=== PATIENT | female | born 1945 | race Caucasian/White ===

== ENCOUNTER 2017-11-30 22:04 | Inpatient (IN) | payer MEDICARE, BC ==
[~2017-11-30] VITALS: Ht 165.1 cm; Wt 75.2 kg
--- NOTE | ~2017-11-30 | PN ---
PATIENT:LIBERTY LIND MEDICAL RECORD: [id number] LOCATION:[facility] RamirezDiana ADMISSION DATE: 11/30/17 PROGRESS NOTE DATE OF SERVICE: 12/08/2017 SUBJECTIVE: The patient's case was discussed with staff. She has no new complaint. OBJECTIVE: The patient is in good behavioral control with limited insight about her condition. She does tolerate her medicines well. She is significantly calmer today, but is still not sleeping adequately. Her medicines have been reviewed and will be maintained. She did not have any hallucinations yesterday. TRANSINT: Voice Confirmation ID: [id number] DOCUMENT ID: [id number] JAYNE BECKFORD MD at 1407 CC: [id number] DICTATION DATE: 12/08/17 151 PLUMBER MAINTENANCE: 12/08/17 1518 ADM IN [facility] [address] [place] [address]
--- NOTE | ~2017-11-30 | PN ---
PATIENT:LIBERTY LIND MEDICAL RECORD: [id number] LOCATION:MAR[facility] GUADALUPE Ramirez112 ADMISSION DATE: 11/30/17 PROGRESS NOTE DATE OF SERVICE: 12/04/2017 SUBJECTIVE: The patient's case was discussed with staff. She has no new complaint. OBJECTIVE: The patient is in good behavioral control with limited insight about her condition. She is oriented only to person. ASSESSMENT: No change in diagnoses. PLAN: Current medicines and therapies have been reviewed. Her long-term prognosis is guarded. TRANSINT:[id number] Voice Confirmation ID: [id number] DOCUMENT ID: [id number] JAYNE BECKFORD MD at 1002 CC: [id number] DICTATION DATE: 12/04/17 1116 WELL LOGGING CAPTAIN: 12/04/17 1212 ADM IN [place] [id number] [place] [address]
--- NOTE | ~2017-11-30 | PN ---
PATIENT:LIBERTY LIND MEDICAL RECORD: [id number] LOCATION:[facility] GUADALU[facility] Ramirez112 ADMISSION DATE: 11/30/17 PROGRESS NOTE DATE OF SERVICE: 12/05/2017 SUBJECTIVE: The patient's case was discussed with staff. She has no new complaint. OBJECTIVE: The patient denies intent to harm herself or others. She generally tolerates her medicines well. Eye contact is poor. ASSESSMENT: No change in diagnoses. PLAN: The patient will be given Aricept along with the Namenda to slow the decline in her cognitive processes. She has not been aggressive today. TRANSINT:[id number] Voice Confirmation ID: [id number] DOCUMENT ID: [id number] JAYNE BECKFORD MD at 1319 CC: [id number] DICTATION DATE: 12/05/17 1018 ART GLASS SETTER: 12/05/17 1144 ADM IN [facility] [address] [place] [id number]
--- NOTE | ~2017-11-30 | PN ---
PATIENT:LIBERTY LIND MEDICAL RECORD: [id number] LOCATION:MARIA GUADALUPE Mchugh ADMISSION DATE: 11/30/17 PROGRESS NOTE DATE OF SERVICE: 12/10/2017 SUBJECTIVE: The patient's case was discussed with staff. She has no new complaint. OBJECTIVE: The patient denies intent to harm herself or others. She generally tolerates her medicines well. Eye contact is fair. ASSESSMENT: No change in diagnoses. PLAN: Brief supportive and educational interventions were made. The patient has been having active hallucinations today. I did not observe them, but they were reported to me. Apparently, she has been seeing a little boy and the little boy has been threatening to kill her. I did increase her antipsychotic medication yesterday if it is going to help, it has not had an opportunity to do much of anything. TRANSINT:[id number] Voice Confirmation ID: [id number] DOCUMENT ID: [id number] JAYNE BECKFORD MD at 1234 CC: [id number] DICTATION DATE: 12/10/17 1427 SUMMER NANNY: 12/10/17 [address] [facility] [address] [place] [address]
--- NOTE | ~2017-11-30 | HP ---
PATIENT: LIBERTY LIND MEDICAL RECORD: [id number] ACCOUNT: [id number] LOCATION:MARIA GUADALUPE Ramirez1127 : 49 ADMISSION DATE: 11/30/17 PCP: BEBETO CARVALHO MD HISTORY AND PHYSICAL EXAMINATION BONNY Perez (70yo, F) ID# [id number]. Date/Time12/09/2017 11:48GAANA66/25[birth year]1950[facility] ClinicProviderEDANNIE DICKERSON MDInsuranceMed Primary: [place] Insurance # : [id number] PCP : ARMOND CARRANZA Referring Provider Name : ARMOND CARRANZA Employer Name : NONE Med Secondary: [employer] (MEDICARE SUPPLEMENT) Insurance # : [id number] PCP : SUKHWINDER GEIGER Referring Provider Name : TAPAN PETERSON Employer Name : NONE Prescription: CMX - Member is eligible. Chief Complaint Followup: Atherosclerosis of [place] arteries of the extremities PT REQUESTED APPT. RECENTLY FELL TO KNEES, HAD INCREASED LEG AND FOOT SWELLING. SAW DR NIÑO, WHO TOLD HER TO SEE DR DICKERSON. Patient's Care Team Primary Care Provider (): ARMOND CARRANZA: [facility], [address], [place] [address], , Referring Provider (): ARMOND CARRANZA: [facility], [address], [place] [address], , Primary Care Provider (): SUKHWINDER GEIGER[facility], [address] [place] [address], , Referring Provider (): TAPAN PETERSON: [address] [place] [phone], , Referring Provider: HENNA HILL MD: [address] [place] [phone], , Primary Care Provider: SUKHWINDER GEIGER DO: [address], [place] [address], , Patient's Pharmacies [id number] ([place]): [address] [facility] [address], , [id number] ([place]): [address], [facility] [address], , use mail out for Large QTY Vitals BP:128/68 sitting L arm 12/09/2017 11:26 amBP Cuff Size:adult 12/09/2017 11:26 amHR:100,REG 12/09/2017 11:26 amHt:5 ft 12/09/2017 11:23 amWt:180 lbs 12/09/2017 11:26 amNotes:LEFT LEG PAINFUL FROM HIP DOWN, AND SWELLING TO ENTIRE LEG, WITH FOOT VERY PUFFY. 12/09/2017 11:27 amBMI:35.2 12/09/2017 11:26 amAllergies Reviewed Allergies NKDAMedications Reviewed Medications acetaminophen 300 mg-codeine 30 mg sjslwu42/24/16 filledCaremarkammonium lactate 12 % skiyio13/12/18 filledCaremarkamoxicillin 500 mg-potassium clavulanate 125 mg kiravd26/16/18 filledCaremarkanastrozole 1 mg euevps58/04/14 HISTORY AND PHYSICAL [id number] LIBERTY LIND filledCaremarkatorvastatin 10 mg /07/18 filledCaremarkBreeze 2 kit USE TO CHECK BLOOD SUGAR DAILY.05/01/15 filledsurescriptsBreeze 2 Test Strips CHECK BLOOD SUGAR TWICE A DAY10/27/17 filledsurescripts cephALEXin 500 mg jevndpn42/09/17 filledCaremarkclindamycin HCl 150 mg /24/16 filledCaremarkclindamycin HCl 300 mg umydykn84/12/17 filledCaremarkclopidogrel 75 mg tablet TAKE 1 TABLET BY MOUTH DAILY09/23/17 filledCaremarkcodeine 10 mg-guaifenesin 100 mg/5 mL oral /08/18 filledCaremarkcyclobenzaprine 10 mg tablet TAKE 1 TABLET (10 MG) BY MOUTH DAILY AT BEDTIME.11/30/17 filledCaremarkdicloxacillin 500 mg worijfr10/13/14 filledCaremarkfluconazole 200 mg xmeykt19/07/14 filledCaremarkfolic acid 1 mg tablet TAKE 1 TABLET BY MOUTH EVERY DAY09/19/17 filledCaremark FreeStyle Lancets 28 gauge USE DIRECTED TO TEST TWICE DAILY11/03/17 filledsurescriptsgabapentin 300 mg capsule TAKE ONE CAPSULE BY MOUTH 3 TIMES A DAY09/03/16 filledCaremarkglipiZIDE 10 mg hxitvj08/24/18 filledCaremarkglipiZIDE 5 mg tablet TAKE ONE TABLET BY MOUTH IN THE MORNING AND ONE TABLET BY MOUTH AT SNLYNVF90/09/18 filledCaremarkHYDROcodone 10 mg-acetaminophen 325 mg tablet TAKE 1 TABLET BY MOUTH EVERY 4 HOURS NEEDED FOR MODERATE PAIN11/08/17 filledCaremarkHYDROcodone 5 mg-acetaminophen 325 mg tablet TAKE 1 TABLET BY MOUTH EVERY 4 HOURS NEEDED FOR MODERATE PAIN02/04/16 filledCaremarkHYDROcodone 7.5 mg-acetaminophen 325 mg npeeyt26/18/16 filledCaremarkhydroxychloroquine 200 mg tablet TAKE 1 TABLET BY MOUTH TWICE A DAY10/02/17 filledCaremarkindomethacin 25 mg pgghjaw18/24/16 filledCaremarkleflunomide 10 mg tablet TK 1 T PO D011/22/17 filledCaremarklevoFLOXacin 500 mg mvfxcu98/28/15 filledCaremarklisinopril 10 mg tablet TAKE ONE TABLET DAILY BY MOUTH11/08/17 filledCaremarkmeclizine 25 mg /27/18 filledCaremarkmetFORMIN 500 mg /21/18 filledCaremarkmethocarbamol 750 mg mxmmiu52/18/16 filledCaremarkmetHOTREXate sodium 2.5 mg fbbejf75/14/18 filledCaremarkmethylPREDNISolone 4 mg tablets in a dose pack03/02/17 filledCaremarkmetoprolol tartrate 25 mg tablet TAKE 1/2 TABLET BY MOUTH TWICE A DAY10/07/17 filledCaremarkmupirocin 2 % topical dzpoxdmr09/19/15 filledCaremarkMyrbetriq 50 mg tablet,extended sfyfhyq75/06/18 filledCaremarkniacin ER 500 mg tablet,extended release 24 hr TK 1 T PO D010/23/17 filledCaremarknitrofurantoin monohydrate/macrocrystals 100 mg /18/17 filledCaremarknystatin 100,000 unit/gram topical cream09/13/17 filledCaremarknystatin 100,000 unit/mL oral hsrawwdjyd56/07/15 filledCaremarkomega-3 acid ethyl esters 1 gram fbwsgoo34/03/17 filledCaremarkomeprazole 20 mg capsule,delayed uqooxwr48/15/18 filledCaremarkoxybutynin chloride ER 10 mg tablet,extended release 24 hr TAKE 1 TABLET BY MOUTH DAILY04/12/17 filledCaremarkpolymyxin B sulfate 10,000 unit-trimethoprim 1 mg/mL eye drops08/03/17 filledCaremarkpredniSONE 5 mg tablet TAKE ONE TABLET BY MOUTH EVERY DAY10/24/17 filledCaremarkPrempro 0.625 mg-2.5 mg wfcjlo89/14/14 filledCaremarkProAir HFA 90 mcg/actuation aerosol inhaler INHALE 1-2 PUFFS EVERY 4-6 HOURS CRWCJM18/09/18 filledsurescriptspromethazine 25 mg rectal fctfkmranah47/28/15 filledCaremarkpromethazine 6.25 mg-codeine 10 mg/5 mL syrup02/15/17 filledCaremarkSantyl 250 unit/gram topical kkdgwkoj10/05/15 filledCaremarkSF 5000 Plus 1.1 % dental cream10/31/14 filledCaremarktamoxifen 20 mg /21/18 filledCaremarktemazepam 30 mg capsule TK ONE C PO HS09/24/17 filledCaremarktraMADol 50 mg iqjlok02/16/18 filledCaremarktriamcinolone acetonide 0.1 % dental paste01/19/14 filledCaremarkTRUEplus Lancets 30 gauge10/17/14 filledsurescriptsProblems Reviewed Problems HISTORY AND PHYSICAL [id number] LIBERTY LIND Intraductal carcinoma in situ of breast Atherosclerosis of [place] arteries of the extremities, Bilateral Intermittent claudication due to atherosclerosis of [place] artery of limb Limb pain at rest due to atherosclerosis of [place] artery Intermittent claudication Osteoarthritis of hip Osteoarthritis of knee Pain of left hip joint - Onset: 09/01/2017 Pain in left knee Pain of right shoulder joint Family History Reviewed Family History Non-contributory.Social History Reviewed Social History Cardiology and General Smoking Status: Never smoker Diabetes: N Alcohol intake: None Occupation: unemployed Marital status: Is blood transfusion acceptable in an emergency?: Y Surgical History Reviewed Surgical History Vascular Surgery - 05/28/2015 - LLE arteriogram, angioplasty/stenting LCFA Vascular Surgery - 05/03/2015 - RLE arteriogram/intervention Lumpectomy, with needle localization - 06/26/2013 Excision, tumor, soft tissue of foot/toe - 04/01/2011 Art byp femoral-popliteal - 03/13/2008 - LT. 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 HPI Peripheral Vascular Disease Reported by patient. Location: WHOLE LEG HURTS Quality: aching; weakness Severity: interferes with normal activity Duration: started 3weeks ago Onset/Timing: continuous Context: during walking; at rest Alleviating Factors: rest Aggravating Factors: walking Associated Symptoms: skin discoloration; PULSES PRESENT WITH DOPPLER HISTORY AND PHYSICAL [id number] LELO,LIBERTY Coyne Bilateral lower extremity edema ROS Patient reports exercise intolerance but reports no fever, no night sweats, no significant weight gain, and no significant weight loss; claudication lower extremities bilaterally left worse than the right. She reports muscle aches, muscle weakness, arthralgias/joint pain, and back pain but reports no swelling in the extremities. She reports no dry eyes, no irritation, and no vision change. She reports no difficulty hearing and no ear pain. She reports no frequent nosebleeds and no nose/sinus problems. She reports no sore throat, no bleeding gums, no s n oring, no dry mouth, no mouth ulcers, no oral abnormalities, and no teeth problems. She reports no chest pain, no arm pain on exertion, no shortness of breath when walking, no shortness of breath when lying down, no palpitations, and no known heart murmur . She reports no cough, no wheezing, no shortness of breath, and no coughing up blood. She reports no abdominal pain, no vomiting, normal appetite, no diarrhea, not vomiting blood, no nausea, and no constipation. She reports no incontinence, no difficulty u rinating, no hematuria, and no increased frequency. She reports no abnormal mole, no jaundice, and no rashes. She reports no loss of consciousness, no weakness, no numbness, no seizures, no dizziness, and no headaches. She reports no depression, no sleep disturbances, feeling safe in relationship, and no alcohol abuse. She reports no fatigue. She reports no swollen glands and no bruising. She reports no runny nose, no sinus pressure, no itching, no hives, and no frequent sneezing. Additionally reports: claudication lower external disease bilaterally left greater than the right ROS as noted in the HPI Physical Exam Patient is a 70-year-old female. Constitutional: General Appearance healthy-appearing, well developed, and overweight. Level of Distress NAD. Ambulation limited ambulation (RH ARTH.). Ears, Nose, Throat: Ears grossly normal hearing. Nose no external nose lesion. Lips, Teeth, and Gums no mouth or lip ulcers. Oropharynx: moist mucous membranes. Cardiovascular: Apical Impulse not displaced or no thrill. Heart Auscultation normal s1 and s2; no murmurs, rubs, or gallops; and RRR. Arterial Pulses no abdominal aorta bruits, femoral bruits, or popliteal bruits and 2+ bilateral, carotid 2+ bilateral, femoral 2+ bilate ral, popliteal 2+ bilateral, and dorsalis pedis not palpable (Bilaterally). Edema no varicosities and edema (Lower extremities bilaterally). Lungs: Repiratory Effort no dyspnea. Percussion no hyperresonance or dullness or flatness. Auscultation no wheezing , rhonchi, or rales / crackles and breathing sounds normal, good air movement, and CTA except as noted. Abdomen: Bowl Sounds normal. Inspection and Palpation no tenderness, guarding, masses, or rebound tenderness and soft and non-distended. Liver non-tender and no hepatomegaly. Spleen non-tender and no splenomegaly. Hernia none palpable. Musculoskeletal System: Gait And Stance normal gait and stance. Digits and Nails normal nails and no cyanosis. Joints, Bones, and Muscles abnormal strength and normal movement of all extremities. Neurologic: Cranial Nerves grossly intact. Reflexes DTRs 2+ bilaterally throughout. Sensation grossly intact. HISTORY AND PHYSICAL [id number] LIBERTY LIND Lymph Nodes: Lymph Nodes no cervical LAD, supraclavicular LAD, axillary LAD, or inguinal LAD. Eyes: Lids and Conjunctivae no discharge or pallor and non-injected. Pupils PERRLA. Cornea grossly intact. EOM EOMI. Lens clear. Sclera non-icteric. Neck: Neck no masses, enlarged lymph nodes, or carotid bruits and supple and trachea midline. Thyroid no enlargement or nodules and non-tender. Skin: Inspection and Palpation no rash, lesions, ulcers, jaundice, or abnormal nevi. Assessment / Plan Peripheral arterial disease Bilateral lower extremity edema 1. Atherosclerosis of [place] arteries of the extremities I70.203: Unspecified atherosclerosis of [place] arteries of extremities, bilateral legs Discussion Notes Echocardiogram Bilateral venous Doppler Hemogram and CMP NAHOMY DICKERSON MD at 1722 CC: [id number] DICTATION DATE: 12/09/17 1140 SUPERVISOR TRAVEL TRAILER: DM 12/09/17 1429 ADM IN [facility] [address] [place] [address]
--- NOTE | ~2017-11-30 | PN ---
PATIENT:LIBERTY LIND MEDICAL RECORD: [id number] LOCATION:MARIA GUADALUPE Ramirez112 ADMISSION DATE: 11/30/17 PROGRESS NOTE DATE OF SERVICE: 12/03/2017 SUBJECTIVE: The patient's case was discussed with staff. She has no new complaint. OBJECTIVE: The patient is tolerating her medicines well, but she is profoundly confused. ASSESSMENT: No change in diagnoses. PLAN: Brief supportive and educational interventions were made. Long-term prognosis is guarded. TRANSINT:[id number] Voice Confirmation ID: [id number] DOCUMENT ID: [id number] JAYNE BECKFORD MD at 1053 CC: [id number] DICTATION DATE: 12/03/17 1334 IT SYSTEMS ENGINEER: 12/03/17 1343 ADM IN [place] [id number] [place] [address]
--- NOTE | ~2017-11-30 | PN ---
PATIENT:LIBERTY LIND MEDICAL RECORD: [id number] LOCATION:MARIA GUADALUPE Mchugh ADMISSION DATE: 11/30/17 PROGRESS NOTE DATE OF SERVICE: 12/16/2017 SUBJECTIVE: The patient's case was discussed with staff. She has no new complaint. OBJECTIVE: The patient is in good behavioral control, but last night she once again had difficulty. She became acutely psychotic and frightened. She was actively hallucinating and thought that someone was trying to hurt a baby. She has no recollection of this event today, but the documentation on it is significant. ASSESSMENT: No change in diagnoses. PLAN: I am going to try to give the patient a stronger dose of Klonopin at bedtime to assist with these night time issues. Her long-term prognosis is guarded. TRANSINT:[id number] Voice Confirmation ID: [id number] DOCUMENT ID: [id number] JAYNE BECKFORD MD at 1406 CC: [id number] DICTATION DATE: 12/16/17 1450 CUSTOMER SERVICE AND SALES CONSULTANT: 12/16/17 1502 ADM IN [place] [address] [place] [address]
--- NOTE | ~2017-11-30 | PN ---
PATIENT:LIBERTY LIND MEDICAL RECORD: [id number] LOCATION:MARIA GUADALUPE LuongAyan112 ADMISSION DATE: 11/30/17 PROGRESS NOTE DATE OF SERVICE: 12/07/2017 SUBJECTIVE: The patient's case was discussed with staff. She has no new complaint. OBJECTIVE: The patient denies intent to harm herself or others. She generally tolerates her medicines well. ASSESSMENT: No change in diagnoses. PLAN: The patient has been somewhat anxious. I am going to give her a low dose of Klonopin at bedtime to assist with sleep consolidation and I suspect it will, because of its long half life, continue to relieve some of the anxiety that she has throughout the day. She will be monitored for clinical changes associated with its use. TRANSINT:[id number] Voice Confirmation ID: [id number] DOCUMENT ID: [id number] JAYNE BECKFORD MD at 1449 CC: [id number] DICTATION DATE: 12/07/17 1518 MULTIMEDIA EDITOR: 12/07/17 1556 ADM IN [place] [id number] [place] [id number]
--- NOTE | ~2017-11-30 | PN ---
PATIENT:LIBERTY LIND MEDICAL RECORD: [id number] LOCATION:MARIA GUADALUPE Ramirez112 ADMISSION DATE: 11/30/17 PROGRESS NOTE DATE OF SERVICE: 12/13/2017 SUBJECTIVE: The patient's case was discussed with staff. She has no new complaint. OBJECTIVE: The patient is in good behavioral control with limited insight about her condition. She generally tolerates her medicines well. She has not been aggressive today. ASSESSMENT: No change in diagnoses. PLAN: Supportive and educational interventions were made. Long-term prognosis is guarded. TRANSINT:[id number] Voice Confirmation ID: [id number] DOCUMENT ID: [id number] JAYNE BECKFORD MD at 1416 CC: [id number] DICTATION DATE: 12/13/17 1615 FILAMENT MAKER: 12/13/17 1629 ADM IN [place] [id number] [place] [address]
--- NOTE | ~2017-11-30 | PN ---
PATIENT:LIBERTY LIND MEDICAL RECORD: [id number] LOCATION:MARIA GUADALUPE Ramirez112 ADMISSION DATE: 11/30/17 PROGRESS NOTE DATE OF SERVICE: 12/22/2017 SUBJECTIVE: The patient's case was discussed with staff. She has no new complaint. OBJECTIVE: The patient is very much improved with no delusions or psychotic symptoms. She has no thoughts of harming herself or others. She is profoundly confused and I think that trying to care for her at home is probably a larger task than the family realizes, but that is what they want to do. ASSESSMENT: No change in diagnoses. PLAN: The patient will be discharged to home with her family and caregiver. Long-term prognosis is unfortunately not very good. Her disease is progressive and it is already advanced. Followup will be with her primary care physician. TRANSINT:[id number] Voice Confirmation ID: [id number] DOCUMENT ID: [id number] JAYNE BECKFORD MD at 1127 CC: [id number] DICTATION DATE: 12/22/17 1013 CATTLE SORTER: 12/22/17 1107 DIS IN 12/22/17 [facility] [address] [place] [address]
--- NOTE | ~2017-11-30 | PN ---
PATIENT:LIBERTY LIND MEDICAL RECORD: [id number] LOCATION:MARIA GUADALUPE Ramirez112 ADMISSION DATE: 11/30/17 PROGRESS NOTE DATE OF SERVICE: 12/06/2017 SUBJECTIVE: The patient's case was discussed with staff. She has no new complaint. OBJECTIVE: The patient was observed today talking to hallucinations. When asked about it, she has no recollection of it. ASSESSMENT: No change in diagnoses. PLAN: The patient is seriously and significantly impaired cognitively. She has very limited insight about her situation. ASSESSMENT: No change in diagnoses. PLAN: Supportive and educational interventions were made. Long-term prognosis is guarded. TRANSINT:[id number] Voice Confirmation ID: [id number] DOCUMENT ID: [id number] JAYNE BECKFORD MD at 1440 CC: [id number] DICTATION DATE: 12/06/17 1410 TOLL SETTLEMENT CLERK: 12/06/17 1421 ADM IN [place] [address] [place] [address]
--- NOTE | ~2017-11-30 | PSY ---
PATIENT NAME:LIBERTY LIND MEDICAL RECORD: [id number] : 49 LOCATION:AgIMTIAZ Ramirez1127 ADMISSION DATE: 11/30/17 ACCOUNT: [id number] PSYCHIATRIC EVALUATION DATE OF EVALUATION: 12/01/17 PSYCHIATRIC EVALUATION IDENTIFYING DATA: The patient is 72 years old and she is admitted to the hospital on a voluntary basis. CHIEF COMPLAINT: Confusion. HISTORY OF PRESENT ILLNESS: The patient comes to us from the [facility] Emergency Room. She presented there paranoid and delusional. She was afraid of an old man. The man did not have a specific name, but she was seeing him everywhere and was afraid to be alone and afraid he was going to hurt her. She is no longer mentioning the old man or at least does not do so when I interview her, but she clearly is profoundly impaired. She knows her name. She cannot tell me how old she is. She cannot tell me any basic information that would be orienting or about her personally. She is clearly awake, alert, responsive, interactive, and has a euthymic mood, but she cannot answer questions. PAST MEDICAL HISTORY: The past medical history is largely unknown. Apparently, there is a pharmacy that the patient uses and we have been able to obtain a list of medications. The medications she is on would indicate that she has a history of hypertension and a long established diagnosis of dementia based on the fact that she was taking Exelon and Namenda. She also must have some history of mood or behavior disturbances since she is also prescribed Zoloft and Seroquel. She is also on a strange combination of herbal medications and vitamins, some of which are not formulary and I am not familiar with. I am just going to give her vitamin E, C, calcium, and vitamin B12. PAST PSYCHIATRIC HISTORY: Unknown and the patient is not able to provide history. Based on inference as was mentioned above, she clearly has an existing diagnosis of dementia because of the medicine she is prescribed and she clearly has some evidence of disorganized thinking or behavior problems because of the Seroquel. Along a similar line of thinking, someone has prescribed Zoloft to her for what would obviously be a depressed mood. FAMILY HISTORY: Unknown. There are no collateral sources of information or no records at this time. Obviously, efforts will be made to obtain more information. ALLERGIES: No known drug allergies. CURRENT MEDICATIONS: Include Protonix, Exelon, vitamin E, vitamin B12, vitamin C, Carafate, potassium, calcium, Seroquel, Zoloft, Namenda, aspirin, lisinopril, and Lipitor. SOCIAL HISTORY: Again, the information provided is almost completely nonexistent. After pausing and thinking for a long time, the patient answers the question affirmatively that she has children and she counts to herself very slowly to 6 and says she thinks she has 6 children. When asked if she has ever been , she thinks again for a long pause and then says yes, but cannot tell me her 's name or how long she has been . She cannot tell me the name of her children. She cannot tell me what kind of work she did. She does tell me that she does not like alcohol and that she does not abuse drugs or alcohol and never did. MENTAL STATUS EXAMINATION: The patient is awake, alert, and oriented to person only. Her mood is euthymic. Her affect is appropriate. Her memory, concentration, and abstraction abilities are severely impaired. She denies any active intent to harm herself or others and she denies overt psychotic symptoms. ASSETS: Ability to make her needs known. LIABILITIES: Limited insight. 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 AXIS II: Deferred. AXIS III: Hypertension and hyperlipidemia. AXIS IV: Moderate stressors. AXIS V: Global assessment of functioning is 20. PLAN: At this time, the patient appears to be a psychotic woman who is primarily having these symptoms associated with an advanced dementia. Obviously, additional information about her longitudinal history and background will be necessary to effectively formulate an idea about her situation. She is currently calm and not showing any evidence of agitated behavior. The face sheet for the patient's admission indicates that she is and efforts will be made to contact her family for additional information and information will be obtained from the doctors of record on her prescription medications. TRANSINT:[id number] Voice Confirmation ID: [id number] DOCUMENT ID: [id number] JAYNE BECKFORD MD at 1305 CC: [id number] DICTATION DATE: 12/01/17 171 SERVICE SUPPORT REPRESENTATIVE: 12/01/17 1803 ADM IN [facility] [address] [place] [address]
--- NOTE | ~2017-11-30 | PN ---
PATIENT:LIBERTY LIND MEDICAL RECORD: [id number] LOCATION:MARIA GUADALUPE Ramirez112 ADMISSION DATE: 11/30/17 PROGRESS NOTE DATE OF SERVICE: 12/21/2017 SUBJECTIVE: The patient's case was discussed with staff. She has no new complaint. OBJECTIVE: The patient is in good behavioral control with limited insight about her condition. She generally tolerates her medicines well. ASSESSMENT: No change in diagnoses. PLAN: Current medicines and therapies have been reviewed. I am going to reduce her Klonopin slightly. Her behavior has improved so much that I anticipate she can be discharged from the hospital tomorrow if this level of improvement is maintained. TRANSINT:[id number] Voice Confirmation ID: [id number] DOCUMENT ID: [id number] JAYNE BECKFORD MD at 0827 CC: [id number] DICTATION DATE: 12/21/17 1430 FLEET SERVICE CLERK: 12/21/17 1437 ADM IN [place] [id number] [place] [address]
--- NOTE | ~2017-11-30 | DS ---
PATIENT:LIBERTY LIND :49 MEDICAL RECORD: [id number] DISCHARGE SUMMARY ADMISSION DATE: 11/30/17 DISCHARGE DATE: 12/22/17 IDENTIFYING DATA: The patient is 72 years old and she was admitted to the hospital on a voluntary basis because of confusion. The patient came to us from the [facility] Emergency Room where she presented paranoid and delusional. She was afraid of an old man. She did not have a specific name, but she was seeing him everywhere and was afraid to be alone and that he was going to hurt her. She was clearly profoundly impaired and was only oriented to person. HOSPITAL COURSE: The patient was admitted to the hospital and fully evaluated from both a medical, psychological and social standpoint. She was thought to be demented and to have psychotic symptoms associated with a dementia. Various medications and combinations of medications were tried, but finally an optimal set of medications was achieved and the patient was treated with antipsychotic, antidepressant, mood stabilizing, and memory enhancing medications. She was subsequently discharged. She was to be cared for by her family. 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 AXIS II: None. AXIS III: Hypertension and hyperlipidemia. AXIS IV: Moderate stressors. AXIS V: Global Assessment Of Functioning is 30. PLAN: At the time of discharge, the patient was in good behavioral control and had no active thoughts of harming herself or others. She was tolerating her medicines well. TRANSINT:[id number] Voice Confirmation ID: [id number] DOCUMENT ID: [id number] JAYNE BECKFORD MD at 0909 CC: [id number] DICTATION DATE: 12/25/17 1013 TABLE GAMES FLOOR SUPERVISOR: 12/26/17 0008 DIS IN 12/22/17 [facility] [address] [place] [address]
--- NOTE | ~2017-11-30 | PN ---
PATIENT:LIBERTY LIND MEDICAL RECORD: [id number] LOCATION:AgAyanRONNIE Ramirez112 ADMISSION DATE: 11/30/17 PROGRESS NOTE DATE OF SERVICE: 12/02/2017 SUBJECTIVE: The patient's case was discussed with staff. She has no new complaint. OBJECTIVE: The patient is clearly confused. At times, she has been irritable, but she has not been openly aggressive. She has pretty limited insight about her situation. She has not said anything else about the man she is afraid of, but that may be that I have just not observed it, and at the time I am dictating this, I have not met with the full treatment team. ASSESSMENT: No change in diagnoses. PLAN: The patient is taking an antipsychotic medication. I do not know yet if she was consistently taking it at home. Her long-term prognosis is guarded. TRANSINT:[id number] Voice Confirmation ID: [id number] DOCUMENT ID: [id number] JAYNE BECKFORD MD at 1324 CC: [id number] DICTATION DATE: 12/02/17 1408 BLOOD DONOR RECRUITER SUPERVISOR: 12/02/17 1432 ADM IN [facility] [address] [place] [address]
--- NOTE | ~2017-11-30 | PN ---
PATIENT:LIBERTY LIND MEDICAL RECORD: [id number] LOCATION:MARIA GUADALUPE Ramirez112 ADMISSION DATE: 11/30/17 PROGRESS NOTE DATE OF SERVICE: 12/19/2017 SUBJECTIVE: The patient's case was discussed with staff. She has no new complaint. OBJECTIVE: The patient is continuing to have ongoing psychotic symptoms. She was very upset and had to be medicated last night because she thought she was seeing through the window a young girl being attacked and molested by men. There was not any such thing going on, but she could not be redirected. ASSESSMENT: No change in diagnoses. PLAN: The patient has been on more than one antipsychotic medication with little or no effect. I am going to stop the Risperdal and we will start her on a scheduled dose of Haldol. Her long-term prognosis is guarded. TRANSINT:[id number] Voice Confirmation ID: [id number] DOCUMENT ID: [id number] JAYNE BECKFORD MD at 1426 CC: [id number] DICTATION DATE: 12/19/17 1220 BROWNFIELD PROGRAM COORDINATOR: 12/19/17 1228 ADM IN [facility] [address] [place] [address]
[2017-11-30] MEDS ORDERED: VITAMIN E100 UNIT PO (23:17)
[2017-11-30] MEDS ORDERED: ASCORBIC ACID500 MG PO (23:18)
[2017-11-30] MEDS ORDERED: BAYER CHEWABLE81 MG PO (23:18)
[2017-11-30] MEDS ORDERED: CALCIUM 600 +1 EAC3 PO (23:19)
[2017-11-30] MEDS ORDERED: SEROQUEL25 MG PO (23:20)
[2017-11-30] MEDS ORDERED: PROBIOTIC BLEN1 EACH (23:21)
[2017-11-30] MEDS ORDERED: CYANOCOBALAMIN (23:23)
[2017-11-30] MEDS ORDERED: [UNRECOGNIZED DRUG - OTHER] (23:23)
[2017-11-30] MEDS ORDERED: POTASSIUM99 M1 PO (23:24)
[2017-11-30] MEDS ORDERED: NAMENDA5 MG PO (23:24)
[2017-11-30] MEDS ORDERED: BLACK COHOSH200 MG PO (23:26)
[2017-11-30] MEDS ORDERED: OMEPRAZOLE40 MG PO (23:27)
[2017-11-30] MEDS ORDERED: CARAFATE1 G PO (23:27)
[2017-11-30] MEDS ORDERED: PROTONIX40 MG PO (23:28)
[2017-11-30] MEDS ORDERED: PRINIVIL20 MG PO (23:28)
[2017-11-30] MEDS ORDERED: LIPITOR40 MG PO (23:29)
[2017-11-30] MEDS ORDERED: ZOLOFT50 MG PO (23:29)
[2017-11-30] MEDS ORDERED: RIVASTIGMINE6 MG PO (23:30)
[2017-11-30] MEDS ORDERED: TRAMADOL HCL E100 M1 PO (23:36)
[2017-11-30] MEDS ORDERED: VITAMIN B-121000 MCG PO (23:39)
[2017-11-30] MEDS ORDERED: PHENYLEPHRINE PO (23:46)
[2017-11-30] MEDS ORDERED: PYRILAMINE PO (23:46)
[2017-12-01 00:44] LABS: APPEARANCE CLEAR (CLEAR); BILIRUBIN NEGATIVE (NEGATIVE); COLOR YELLOW (YELLOW); GLUCOSE NEGATIVE (NEGATIVE); KETONE MODERATE mg/dL (NEGATIVE); NITRITE NEGATIVE (NEGATIVE); PROTEIN NEGATIVE (NEGATIVE); SPECIFIC GRAVITY 1.005 (1.005-1.020); UROBILINOGEN NORMAL (NORMAL)
[2017-12-01 00:45] LABS: BACTERIA FEW /hpf (NONE SEEN); EPITHELIAL CELLS 0-5 /hpf (0-5); MUCUS <1+ /lpf (NONE SEEN); RED CELLS - URINE NONE SEEN /hpf (0-5); WHITE CELLS - URINE 0-5 /hpf (0-5)
[2017-12-01 06:22] VITALS: BP 165/73
[2017-12-01 06:47] LABS: BASOPHILS 0.5 % (0-2); EOSINOPHILS 3.8 % (0-7); HEMATOCRIT 38.1 % (36.0-48.0); HEMOGLOBIN 12.4 g/dL (12-16); IMMATURE GRANULOCYTES 0.2 % (0-5); LYMPHOCYTES 30.4 % (15-50); MCH 27.6 pg (26.0-34.0); MCHC 32.5 g/dL (31.0-37.0); MCV 84.7 fL (80.0-100.0); MEAN PLATELET VOLUME 10.9 fL (7.4-10.4); MONOCYTES 11.9 % (2-11); NEUTROPHILS 53.2 % (40-80); PLATELET COUNT 220 10x3/uL (130-400); RDW 14.9 % (11.5-14.5); WBC 5.6 10x3/uL (4.8-10.8)
[2017-12-01 07:36] LABS: ALBUMIN 3.4 g/dL (3.4-5.0); ALKALINE PHOSPHATASE 68 U/L (46-116); ALT (SGPT) 25 U/L (10-68); CALC OSMOLALITY 285 mosm/kg (275-300); CALCIUM 8.6 mg/dL (8.5-10.1); CARBON DIOXIDE 25.5 mmol/L (21.0-32.0); CHLORIDE - SERUM 107 mmol/L (98-107); CHOL - HDL RATIO 3.2 ratio (2.3-4.1); CHOLESTEROL, TOTAL 162 mg/dL (0-200); CREATININE - SERUM 0.7 mg/dL (0.6-1.3); GLUCOSE 90 mg/dL (74-106); HDL CHOLESTEROL 51 mg/dL (32-96); LDL CHOLESTEROL 84 mg/dL (0-100); LDL-HDL RATIO 1.6 ratio (1.5-3.5); POTASSIUM - SERUM 3.5 mmol/L (3.5-5.1); PROTEIN - SERUM 7.2 g/dL (6.4-8.2); SODIUM 143 mmol/L (136-145); THYROID STIMULATING HORMONE 3.04 uIU/mL (0.36-3.74); TRIGLYCERIDE 135 mg/dL (30-200); UREA NITROGEN 14 mg/dL (7-18); eGFR NON AFRICAN AMERICAN 88 mL/min (90-120)
[2017-12-01 07:37] VITALS: BP 141/75
[2017-12-01 20:25] VITALS: BP 143/78
[2017-12-02 10:24] LABS: FOLATE (FOLIC ACID) - SERUM 12.4 ng/mL (>3.0)
[2017-12-02 19:41] VITALS: BP 155/75
[2017-12-03 09:08] VITALS: BP 113/70
[2017-12-03 20:00] VITALS: BP 132/65
[2017-12-04 08:00] VITALS: BP 146/79
[2017-12-04 19:22] VITALS: BP 138/64
[2017-12-05 08:00] VITALS: BP 154/77
[2017-12-05 13:37] LABS: APPEARANCE CLEAR (CLEAR); BILIRUBIN NEGATIVE (NEGATIVE); COLOR YELLOW (YELLOW); GLUCOSE NEGATIVE (NEGATIVE); KETONE NEGATIVE (NEGATIVE); NITRITE NEGATIVE (NEGATIVE); PROTEIN NEGATIVE (NEGATIVE); SPECIFIC GRAVITY 1.015 (1.005-1.020); UROBILINOGEN NORMAL (NORMAL)
[2017-12-05 13:38] LABS: BACTERIA FEW /hpf (NONE SEEN); MUCUS <1+ /lpf (NONE SEEN); RED CELLS - URINE RARE /hpf (0-5); WHITE CELLS - URINE OCC /hpf (0-5)
[2017-12-05 13:39] LABS: AMORPHOUS SEDIMENT <1+ /lpf (NONE SEEN)
[2017-12-05 13:43] LABS: EPITHELIAL CELLS OCC /hpf (0-5)
[2017-12-05 19:25] VITALS: BP 151/65
[2017-12-06 08:20] VITALS: Ht 165.1 cm; Wt 75.2 kg
[2017-12-06 12:11] VITALS: BP 139/66
[2017-12-06 19:31] VITALS: BP 171/71
[2017-12-07 07:00] VITALS: BP 145/72
[2017-12-07 20:46] VITALS: BP 158/77
[2017-12-08 10:28] VITALS: BP 137/62
[2017-12-08 20:27] VITALS: BP 165/71
[2017-12-09 10:09] VITALS: BP 129/77
[2017-12-09 19:38] VITALS: BP 154/69
[2017-12-10 10:41] VITALS: BP 154/79
[2017-12-10 12:56] LABS: BASOPHILS 0.5 % (0-2); EOSINOPHILS 1.8 % (0-7); HEMATOCRIT 38.2 % (36.0-48.0); HEMOGLOBIN 12.3 g/dL (12-16); IMMATURE GRANULOCYTES 0.2 % (0-5); LYMPHOCYTES 30.1 % (15-50); MCH 28.1 pg (26.0-34.0); MCHC 32.2 g/dL (31.0-37.0); MCV 87.2 fL (80.0-100.0); MEAN PLATELET VOLUME 10.7 fL (7.4-10.4); NEUTROPHILS 58.4 % (40-80); PLATELET COUNT 216 10x3/uL (130-400); RBC 4.38 10x6/uL (4.00-5.40); RDW 14.9 % (11.5-14.5); WBC 6.6 10x3/uL (4.8-10.8)
[2017-12-10 13:14] LABS: CALC OSMOLALITY 284 mosm/kg (275-300); CALCIUM 8.8 mg/dL (8.5-10.1); CARBON DIOXIDE 27.9 mmol/L (21.0-32.0); CHLORIDE - SERUM 106 mmol/L (98-107); CREATININE - SERUM 0.7 mg/dL (0.6-1.3); GLUCOSE 98 mg/dL (74-106); POTASSIUM - SERUM 3.2 mmol/L (3.5-5.1); SODIUM 142 mmol/L (136-145); UREA NITROGEN 17 mg/dL (7-18); eGFR NON AFRICAN AMERICAN 88 mL/min (90-120)
[2017-12-10 20:00] VITALS: BP 154/89
[2017-12-11 10:15] VITALS: BP 169/88
[2017-12-11 20:00] VITALS: BP 166/82
[2017-12-12 11:02] VITALS: BP 145/74
[2017-12-12 19:47] VITALS: BP 127/76
[2017-12-13 07:00] VITALS: BP 168/69
[2017-12-13 19:50] VITALS: BP 141/55
[2017-12-14 10:00] VITALS: BP 136/61
[2017-12-14 18:10] LABS: AEROBE ID Final report (())
[2017-12-14 19:46] VITALS: BP 149/72
[2017-12-15 08:00] VITALS: BP 151/79
[2017-12-15 20:24] VITALS: BP 125/74
[2017-12-16 21:02] VITALS: BP 168/73
[2017-12-17 09:07] VITALS: BP 158/68
[2017-12-17 19:48] VITALS: BP 126/63
[2017-12-18 08:35] VITALS: BP 148/75
[2017-12-18 19:39] VITALS: BP 125/61
[2017-12-19 08:00] VITALS: BP 126/79
[2017-12-19 19:59] VITALS: BP 120/58
[2017-12-20 09:57] VITALS: BP 98/62
[2017-12-20 20:29] VITALS: BP 141/71
[2017-12-21 08:00] VITALS: BP 140/73
[2017-12-21] MEDS ORDERED: LISINOPRIL10 MG PO (14:31)
[2017-12-21] MEDS ORDERED: Aricept PO (14:31)
[2017-12-21] MEDS ORDERED: K-TAB10 MEQ PO (14:32)
[2017-12-21] MEDS ORDERED: FLORAJEN3 CAPS460 MG PO (14:32)
[2017-12-21] MEDS ORDERED: LIDODERM 5 %1 PATCH TRANSDERM (14:33)
[2017-12-21 20:02] VITALS: BP 163/62
[2017-12-22 08:35] VITALS: BP 132/79
== END 2017-12-22 13:00 | disposition home or self-care (01) | DRG 57 ==
LOC: D.PSYCH 22:04
PROVIDERS: Family Medicine; Psychiatry & Neurology Psychiatry
DX: G30.1 Alzheimer's disease with late onset (principal); F02.81 Dementia in other diseases classified elsewhere, unspecified severity, with behavioral disturbance; N39.0 Urinary tract infection, site not specified; I10 Essential (primary) hypertension; E78.5 Hyperlipidemia, unspecified; E03.9 Hypothyroidism, unspecified; E87.6 Hypokalemia; E53.8 Deficiency of other specified B group vitamins; K21.9 Gastro-esophageal reflux disease without esophagitis; M19.90 Unspecified osteoarthritis, unspecified site; B95.4 Other streptococcus as the cause of diseases classified elsewhere

== ENCOUNTER 2018-01-04 14:23 | Inpatient (IN) | payer MEDICARE, BC ==
[~2018-01-04] VITALS: Ht 165.1 cm; Wt 73.4 kg
--- NOTE | ~2018-01-04 | PN ---
PATIENT:LIBERTY LIND MEDICAL RECORD: [id number] LOCATION:MARIA GUADALUPE JamesDiana ADMISSION DATE: 01/04/18 PROGRESS NOTE DATE OF SERVICE: 01/23/2018 SUBJECTIVE: The patient's case was discussed with staff. She has no new complaint. OBJECTIVE: The patient continues to be blunted and withdrawn. She is not eating very well and appears to be somewhat paranoid. ASSESSMENT: No change in diagnoses. PLAN: Supportive and educational interventions were made. Long-term prognosis is guarded. TRANSINT:[id number] Voice Confirmation ID: [id number] DOCUMENT ID: [id number] JAYNE BECKFORD MD at 1502 CC: [id number] DICTATION DATE: 01/23/18 1135 HAND PATTERN MARKER: 01/23/18 1241 ADM IN [facility] [address] [place] [address]
--- NOTE | ~2018-01-04 | PN ---
PATIENT:LIBERTY LIND MEDICAL RECORD: [id number] LOCATION:MARIA GUADALUPE Mchugh ADMISSION DATE: 01/04/18 PROGRESS NOTE DATE OF SERVICE: 01/10/2018 SUBJECTIVE: The patient's case was discussed with staff. She has no new complaint. OBJECTIVE: The patient denies intent to harm herself or others. She is significantly and very seriously impaired cognitively. Her oral intake is poor and although she is not underweight, this level of intake is not consistent with long-term survival. ASSESSMENT: No change in diagnoses. PLAN: The patient's current medicines have been reviewed and will be maintained. Her long-term prognosis is guarded. Supportive and educational interventions were made. TRANSINT:[id number] Voice Confirmation ID: [id number] DOCUMENT ID: [id number] JAYNE BECKFORD MD at 0924 CC: [id number] DICTATION DATE: 01/10/18 1031 POWER PROJECT MANAGER: 01/10/18 1115 ADM IN [place] [address] [place] [address]
--- NOTE | ~2018-01-04 | PN ---
PATIENT:LIBERTY LIND MEDICAL RECORD: [id number] LOCATION:MARIA GUADALUPE Ramirez112 ADMISSION DATE: 01/04/18 PROGRESS NOTE DATE OF SERVICE: 01/20/2018 SUBJECTIVE: The patient's case was discussed with staff. She has no new complaint. OBJECTIVE: The patient denies intent to harm herself or others. She is severely impaired cognitively. She does appear to be calmer and less afraid and hypervigilant. Her family has decided to place her in a intermediate, which I think is unfortunate, but truly the right decision where she will receive the best care. ASSESSMENT: No change in diagnoses. PLAN: The patient will be maintained on current medicines, which I have reviewed. Her long-term prognosis is guarded. I anticipate she can be transitioned out of the hospital soon. TRANSINT:[id number] Voice Confirmation ID: [id number] DOCUMENT ID: [id number] JAYNE BECKFORD MD at 1530 CC: [id number] DICTATION DATE: 01/20/18 1021 ENGINE INSTALLER: 01/20/18 1048 ADM IN [facility] [address] [place] [address]
--- NOTE | ~2018-01-04 | PN ---
PATIENT:LIBERTY LIND MEDICAL RECORD: [id number] LOCATION:MARIA GUADALUPE Ramirez112 ADMISSION DATE: 01/04/18 PROGRESS NOTE DATE OF SERVICE: 01/19/2018 SUBJECTIVE: The patient's case was discussed with staff. She has no new complaint. OBJECTIVE: The patient is in good behavioral control. She has limited insight about her condition. She is sleeping reasonably well. ASSESSMENT: No change in diagnoses. PLAN: I am going to increase the patient's Effexor to 75 mg twice daily. Her long-term prognosis is guarded. TRANSINT:[id number] Voice Confirmation ID: [id number] DOCUMENT ID: [id number] JAYNE BECKFORD MD at 0935 CC: [id number] DICTATION DATE: 01/19/18 1050 INFRASTRUCTURE DEVELOPER: 01/19/18 1146 ADM IN [place] [address] [place] [address]
--- NOTE | ~2018-01-04 | PN ---
PATIENT:LIBERTY LIND MEDICAL RECORD: [id number] LOCATION:MARIA GUADALUPE Ramirez112 ADMISSION DATE: 01/04/18 PROGRESS NOTE DATE OF SERVICE: 01/18/2018 SUBJECTIVE: The patient's case was discussed with staff. She has no new complaint. OBJECTIVE: The patient denies intent to harm herself or others. She generally tolerates her medicines well. Eye contact is poor. ASSESSMENT: No change in diagnoses. PLAN: Current medicines and therapies have been reviewed, both will be maintained. Her long-term prognosis is guarded. I am going to increase the dose of the Namenda to 10 mg twice daily. TRANSINT:[id number] Voice Confirmation ID: [id number] DOCUMENT ID: [id number] JAYNE BECKFORD MD at 0909 CC: [id number] DICTATION DATE: 01/18/18 1008 ELECTRIC PILE DRIVER OPERATOR: 01/18/18 1108 ADM IN [place] [address] [place] [address]
--- NOTE | ~2018-01-04 | PN ---
PATIENT:LIBERTY LIND MEDICAL RECORD: [id number] LOCATION:MARIA GUADALUPE Ramirez112 ADMISSION DATE: 01/04/18 PROGRESS NOTE DATE OF SERVICE: 01/15/2018 SUBJECTIVE: The patient's case was discussed with staff. She has no new complaint. OBJECTIVE: The patient continues to be afraid and hypervigilant. She is concerned that some unknown man is going to hurt her. She has not been hiding behind the doors today, but she walks around, clasping her hands tightly, and darting her eyes back and forth as though she is very much afraid. I have made some adjustments in her medicine. I am going to give them a little bit more time before I try to push the doses higher. TRANSINT:[id number] Voice Confirmation ID: [id number] DOCUMENT ID: [id number] JAYNE BECKFORD MD at 1017 CC: [id number] DICTATION DATE: 01/15/18 110 SOCIAL SERVICE TECHNICIAN: 01/15/18 1214 ADM IN [facility] [address] [place] [address]
--- NOTE | ~2018-01-04 | PN ---
PATIENT:LIBERTY LIND MEDICAL RECORD: [id number] LOCATION:MARIA GUADALUPE Ramirez112 ADMISSION DATE: 01/04/18 PROGRESS NOTE DATE OF SERVICE: 01/12/2018 SUBJECTIVE: The patient's case was discussed with staff. She has no new complaint. OBJECTIVE: The patient is in good behavioral control, but still somewhat significantly frightened and disorganized. ASSESSMENT: No change in diagnoses. PLAN: Current medicines have been reviewed and will be maintained. I think she is significantly calmer with the addition of the extra dose of Klonopin. She will be watched for evidence of sedation. She will also be treated with Effexor at a slightly higher dose. TRANSINT:[id number] Voice Confirmation ID: [id number] DOCUMENT ID: [id number] JAYNE BECKFORD MD at 1254 CC: [id number] DICTATION DATE: 01/12/18 175 DIPLOMA PHARMACY TECHNICIAN: 01/12/18 1904 ADM IN [facility] [address] [place] [id number]
--- NOTE | ~2018-01-04 | PN ---
PATIENT:LIBERTY LIND MEDICAL RECORD: [id number] LOCATION:MARIA GUADALUPE Ramirez112 ADMISSION DATE: 01/04/18 PROGRESS NOTE DATE OF SERVICE: 01/27/2018 SUBJECTIVE: The patient's case was discussed with staff. She has no new complaint. OBJECTIVE: The patient is in good behavioral control with limited insight about her condition. She does tolerate her medicines well. ASSESSMENT: No change in diagnoses. PLAN: The patient is going to be transitioned home. This is contrary to the recommendations that I have made twice to her family. Adult protective services has been notified and they are going to provide random home visits to ensure that she is being properly supervised. My concern is not so much that she is being abused or mistreated or even openly neglected, I do not think that is really the case. The concern is that she is not being adequately cared for, which she is different from being mistreated, and the other problem is that she is not being adequately supervised, which is resulting in her returning here on a regular basis. TRANSINT:[id number] Voice Confirmation ID: [id number] DOCUMENT ID: [id number] JAYNE BECKFORD MD at 1627 CC: [id number] DICTATION DATE: 01/27/18 170 ROPE TOW OPERATOR: 01/27/182130 DIS IN 01/27/18 [facility] [address] [place] [address]
--- NOTE | ~2018-01-04 | PN ---
PATIENT:LIBERTY LIND MEDICAL RECORD: [id number] LOCATION:MARIA GUADALUPE Ramirez112 ADMISSION DATE: 01/04/18 PROGRESS NOTE DATE OF SERVICE: 01/22/2018 SUBJECTIVE: The patient's case was discussed with staff. She has no new complaint. OBJECTIVE: The patient denies intent to harm herself or others. She generally tolerates her medicines well. ASSESSMENT: No change in diagnoses. PLAN: Supportive and educational interventions were made. Long-term prognosis is guarded. I anticipate the patient can be transitioned out of the hospital soon. TRANSINT:[id number] Voice Confirmation ID: [id number] DOCUMENT ID: [id number] JAYNE BECKFORD MD at 1117 CC: [id number] DICTATION DATE: 01/22/18 1146 SENIOR INTERACTION DESIGNER: 01/22/18 1153 ADM IN [place] [id number] [place] [address]
--- NOTE | ~2018-01-04 | PSY ---
PATIENT NAME:LIBERTY LIND MEDICAL RECORD: [id number] : 49 LOCATION:AgIMTIAZ Ramirez1124 ADMISSION DATE: 01/04/18 ACCOUNT: [id number] PSYCHIATRIC EVALUATION DATE OF EVALUATION: 01/05/18 IDENTIFYING DATA: The patient is 72 years old and she is known to me from previous clinical contact. CHIEF COMPLAINT: Aggression and suicidal statements. HISTORY OF PRESENT ILLNESS: The patient is known to me from previous clinical contact. She was here a month or 2 ago for similar confused, agitated behaviors. She was treated and released to her family. The recommendation was fdc placement at that time, but the family did not want to put her in a fdc. They felt that they could provide the level of care we recommended at home. Apparently, there has been some kind of confusion with her medications and I am not sure she has been getting the medicines that we prescribed. Currently, she is calm and cooperative. She does not remember making the suicidal statements. She says she has never met me and has never been here before. PAST MEDICAL HISTORY: Significant for hypertension and hyperlipidemia. PAST PSYCHIATRIC HISTORY: Significant for 1 previous hospitalization here in November. The patient has a longstanding diagnosis of dementia and is very advanced in her decline. FAMILY HISTORY: Still largely unknown and the patient is not giving any information that I would consider reliable. ALLERGIES: No known drug allergies. CURRENT MEDICATIONS: Include Haldol, a lidocaine patch, Protonix, potassium, Seroquel, aspirin, lisinopril, Aricept, Namenda, Lipitor, and a variety of vitamins. SOCIAL HISTORY: The patient is . She does have adult children who live with her. She has no history of drug or alcohol abuse. MENTAL STATUS EXAMINATION: The patient is awake, alert and oriented to person only. Her mood is euthymic. Her affect is appropriate. Thought processes are disorganized with impairment of her memory, concentration, and abstraction abilities. She denies active intent to harm herself or others and has no observed or reported psychotic symptoms. ASSETS: Supportive family members. LIABILITIES: Very poor insight. DIAGNOSTIC IMPRESSION: AXIS I: Senile dementia of the Alzheimer's type with behavioral disturbances. AXIS II: None. AXIS III: Hypertension, hyperlipidemia. AXIS IV: Moderate stressors. AXIS V: Global assessment of functioning is 25. PLAN: At this time, the patient is admitted to the hospital secondary to confused, agitated behavior and suicidal statements at home. She will be evaluated medically, psychologically and socially and treated with both medications and attempts will be made to assist the family in either placing her or managing her better. TRANSINT:[id number] Voice Confirmation ID: [id number] DOCUMENT ID: [id number] JAYNE BECKFORD MD at 1026 CC: [id number] DICTATION DATE: 01/05/18 113 SPA COORDINATOR: 01/05/18 1143 ADM IN [facility] [address] [place] [address]
--- NOTE | ~2018-01-04 | PN ---
PATIENT:LIBERTY LIND MEDICAL RECORD: [id number] LOCATION:AgSOILAToño Ramirez112 ADMISSION DATE: 01/04/18 PROGRESS NOTE DATE OF SERVICE: 01/08/2018 SUBJECTIVE: The patient's case was discussed with staff. She has no new complaint. OBJECTIVE: The patient denies intent to harm herself or others. She generally tolerates her medicines well. Eye contact is fair. ASSESSMENT: No change in diagnoses. PLAN: Current medicines and therapies have been reviewed, both will be maintained. Her behavior is significantly better. TRANSINT:[id number] Voice Confirmation ID: [id number] DOCUMENT ID: [id number] JAYNE BECKFORD MD at 1241 CC: [id number] DICTATION DATE: 01/08/18 1433 HEAT CURER: 01/08/18 1458 ADM IN [facility] [address] [place] [address]
--- NOTE | ~2018-01-04 | PN ---
PATIENT:LIBERTY LIND MEDICAL RECORD: [id number] LOCATION:MARIA GUADALUPE Ramirez112 ADMISSION DATE: 01/04/18 PROGRESS NOTE DATE OF SERVICE: 01/14/2018 SUBJECTIVE: The patient's case was discussed with staff. She has no new complaint. OBJECTIVE: The patient denies intent to harm herself or others. She generally tolerates her medicines well. ASSESSMENT: No change in diagnoses. PLAN: Current medicines have been reviewed and will be maintained. I am going to increase the dose of her Klonopin secondary to the anxiety and fear that she is experiencing. She still thinks someone is trying to kill her. She is still hiding in corners and doors, and cannot be made understand that she is in a safe situation. TRANSINT:[id number] Voice Confirmation ID: [id number] DOCUMENT ID: [id number] JAYNE BECKFORD MD at 1043 CC: [id number] DICTATION DATE: 01/14/18 1008 RESEARCH AND DEVELOPMENT TECHNICIAN: 01/14/18 1015 ADM IN [place] [id number] [place] [address]
--- NOTE | ~2018-01-04 | DS ---
PATIENT:LIBERTY LIND :49 MEDICAL RECORD: [id number] DISCHARGE SUMMARY ADMISSION DATE: 01/04/18 DISCHARGE DATE: 01/27/18 IDENTIFYING DATA: The patient is 72 years old and she was admitted to the hospital on a voluntary basis. The patient was known to us from previous clinical contact and she had apparently made some suicidal statements and had been aggressive with her caregivers. She was agitated at the time of admission. She had been in a long term and made these suicidal statements and had the aggressive behaviors. She was clearly impaired in a very severe manner. HOSPITAL COURSE: The patient was admitted to the hospital and evaluated from both a medical, psychological, and social standpoint. She was treated with both mood stabilizing and memory enhancing medications. Her long-term prognosis is not very good as her dementia is a progressive disease and it is already very significantly advanced. There were some significant problems with her behaviors and agitation, but various combinations of medications were tried and it was at last decided that the best balance between medication side effects and her paranoia and agitation had been achieved. She was subsequently transitioned out of the hospital. DISCHARGE DIAGNOSES: AXIS I: Senile dementia of the Alzheimer's type with behavioral disturbances. AXIS II: None. AXIS III: 1. Hypertension. 2. Hyperlipidemia. AXIS IV: Moderate stressors. AXIS V: Global assessment of functioning is 30. PLAN: At the time of discharge, the patient was in good behavioral control and had no active thoughts of harming herself or others. She was tolerating her medications reasonably well. Followup is to be with her primary care physician. TRANSINT:[id number] Voice Confirmation ID: [id number] DOCUMENT ID: [id number] JAYNE BECKFORD MD at 1042 CC: [id number] DICTATION DATE: 01/31/18 1603 RODEO RIDER: 02/01/18 0412 DIS IN 01/27/18 [place] [id number] [place] [address]
--- NOTE | ~2018-01-04 | PN ---
PATIENT:LIBERTY LIND MEDICAL RECORD: [id number] LOCATION:AgSOILAToño Ramirez112 ADMISSION DATE: 01/04/18 PROGRESS NOTE DATE OF SERVICE: 01/11/2018 SUBJECTIVE: The patient's case was discussed with staff. She has no new complaint. OBJECTIVE: The patient denies intent to harm herself or others. She generally tolerates her medicines well. ASSESSMENT: No change in diagnoses. PLAN: Supportive and educational interventions were made. Long-term prognosis is guarded. TRANSINT:[id number] Voice Confirmation ID: [id number] DOCUMENT ID: [id number] JAYNE BECKFORD MD at 1641 CC: [id number] DICTATION DATE: 01/11/18 0946 HEALTH COMMISSIONER: 01/11/18 1004 ADM IN [place] [id number] [place] [address]
--- NOTE | ~2018-01-04 | PN ---
PATIENT:LIBERTY LIND MEDICAL RECORD: [id number] LOCATION:JamesISACToño Ramirez112 ADMISSION DATE: 01/04/18 PROGRESS NOTE DATE OF SERVICE: 01/09/2018 SUBJECTIVE: The patient's case was discussed with staff. She has no new complaint. OBJECTIVE: The patient is very confused, but she has not been significantly disruptive or agitated. She has very limited insight about her situation. She is relatively calm. ASSESSMENT: No change in diagnoses. PLAN: Current medicines have been reviewed and will be maintained. Her long-term prognosis is guarded. TRANSINT:[id number] Voice Confirmation ID: [id number] DOCUMENT ID: [id number] JAYNE BECKFORD MD at 0930 CC: [id number] DICTATION DATE: 01/09/18 1248 PROGRAM PARAPROFESSIONAL: 01/09/18 1435 ADM IN [address] [id number] [place] [address]
--- NOTE | ~2018-01-04 | PN ---
PATIENT:LIBERTY LIND MEDICAL RECORD: [id number] LOCATION:MARIA GUADALUPE Ramirez112 ADMISSION DATE: 01/04/18 PROGRESS NOTE DATE OF SERVICE: 01/16/2018 SUBJECTIVE: The patient's case was discussed with staff. She has no new complaint. OBJECTIVE: The patient denies intent to harm herself or others. She does appear to be a little bit sedated. Unfortunately, she has also been found to have head lice. Infection control has been contacted and she has been treated along with several other patients that are in close proximity to her. ASSESSMENT: No change in diagnoses. PLAN: I am going to discontinue the patient's Klonopin at least for today, tomorrow, and probably restart it at a lower dose. TRANSINT:[id number] Voice Confirmation ID: [id number] DOCUMENT ID: [id number] JAYNE BECKFORD MD at 1017 CC: [id number] DICTATION DATE: 01/16/18 1257 CASINO CAGE SUPERVISOR: 01/16/18 1320 ADM IN [address] [address] [place] [address]
--- NOTE | ~2018-01-04 | PN ---
PATIENT:LIBERTY LIND MEDICAL RECORD: [id number] LOCATION:MARIA GUADALUPE Ramirez112 ADMISSION DATE: 01/04/18 PROGRESS NOTE DATE OF SERVICE: 01/07/2018 SUBJECTIVE: The patient's case was discussed with staff. She has no new complaint. OBJECTIVE: The patient is in good behavioral control with limited insight about her condition. She is still having ongoing psychotic symptoms. She sits in the corner and hallucinates and is in the afternoon becoming quite angry and agitated. ASSESSMENT: No change in diagnoses. PLAN: The patient has only had 2 daytime doses of the Haldol. I suspect she is going to need a higher dose, but I am reluctant to increase it too quickly. I am going to monitor this for another day and see if she is showing any improvement tomorrow. TRANSINT:[id number] Voice Confirmation ID: [id number] DOCUMENT ID: [id number] JAYNE BECKFORD MD at 1421 CC: [id number] DICTATION DATE: 01/07/18 1236 SCHOOL EXAMINER: 01/07/18 1241 ADM IN [facility] [address] [place] [address]
--- NOTE | ~2018-01-04 | PN ---
PATIENT:LIBERTY LIND MEDICAL RECORD: [id number] LOCATION:MARIA GUADALUPE RamirezDiana ADMISSION DATE: 01/04/18 PROGRESS NOTE DATE OF SERVICE: 01/17/2018 SUBJECTIVE: The patient's case was discussed with staff. She has no new complaint. OBJECTIVE: The patient is in good behavioral control with limited insight about her condition. She tolerates her medicines well. She is more alert today. I think she was significantly overmedicated. I am going to restart her on Klonopin at a lower dose. Her long-term prognosis is guarded. TRANSINT:[id number] Voice Confirmation ID: [id number] DOCUMENT ID: [id number] JAYNE BECKFORD MD at 0946 CC: [id number] DICTATION DATE: 01/17/18 1037 WORKPLACE TRAINER AND ASSESSOR: 01/17/18 1053 ADM IN [facility] [address] [place] [address]
--- NOTE | ~2018-01-04 | PN ---
PATIENT:LIBERTY LIND MEDICAL RECORD: [id number] LOCATION:AgSOILAToño RamirezDiana ADMISSION DATE: 01/04/18 PROGRESS NOTE DATE OF SERVICE: 01/26/2018 SUBJECTIVE: The patient's case was discussed with staff. She has no new complaint. OBJECTIVE: The patient denies that she would seek to harm herself or others. She is generally tolerating her medicines well. ASSESSMENT: No change in diagnoses. PLAN: Supportive and educational interventions were made. Long-term prognosis is guarded. TRANSINT:[id number] Voice Confirmation ID: [id number] DOCUMENT ID: [id number] JAYNE BECKFORD MD at 1613 CC: [id number] DICTATION DATE: 01/26/18 1216 RADAR TESTER: 01/26/18 1238 ADM IN [address] [address] [place] [address]
--- NOTE | ~2018-01-04 | PN ---
PATIENT:LIBERTY LIND MEDICAL RECORD: [id number] LOCATION:AgIMTIAZ James112 ADMISSION DATE: 01/04/18 PROGRESS NOTE DATE OF SERVICE: 01/24/2018 SUBJECTIVE: The patient's case was discussed with staff. She has no new complaint. OBJECTIVE: The patient is disorganized and has very limited insight about her situation. Unfortunately, she still has head lice as the initial Kwell treatment did not kill all of the nits on her head. She does not understand this when we are talking with her. She keeps pulling the surgical cap off and breaking the basic rules about isolation. She is very impaired cognitively. It is my opinion that she needs a retirement and her POA, who is her son, Arden, does not live in the home she is in currently, so I am hopeful that he will intervene with the portion of the family she is living with to allow her to be placed in a retirement. TRANSINT:[id number] Voice Confirmation ID: [id number] DOCUMENT ID: [id number] JAYNE BECKFORD MD at 1203 CC: [id number] DICTATION DATE: 01/24/18 1553 COAT FINISHER: 01/24/18 1755 ADM IN [id number] [place] [address]
--- NOTE | ~2018-01-04 | PN ---
PATIENT:LIBERTY LIND MEDICAL RECORD: [id number] LOCATION:MARIA GUADALUPE Ramirez112 ADMISSION DATE: 01/04/18 PROGRESS NOTE DATE OF SERVICE: 01/13/2018 SUBJECTIVE: The patient's case was discussed with staff. She has no new complaint. OBJECTIVE: The patient is in good behavioral control. She is severely impaired cognitively. Earlier, she was hiding behind the door, thinking that someone was trying to get to her and hurt her. She is calmer now. ASSESSMENT: No change in diagnoses. PLAN: Supportive and educational interventions were made. Long-term prognosis is guarded. TRANSINT:[id number] Voice Confirmation ID: [id number] DOCUMENT ID: [id number] JAYNE BECKFORD MD at 0954 CC: [id number] DICTATION DATE: 01/13/18 1315 MEDICINE AIDE: 01/13/18 1325 ADM IN [facility] [address] [place] [address]
--- NOTE | ~2018-01-04 | PN ---
PATIENT:LIBERTY LIND MEDICAL RECORD: [id number] LOCATION:MARIA GUADALUPE Ramirez112 ADMISSION DATE: 01/04/18 PROGRESS NOTE DATE OF SERVICE: 01/21/2018 SUBJECTIVE: The patient's case was discussed with staff. She has no new complaint. OBJECTIVE: The patient denies intent to harm herself or others. She is tolerating her medications reasonably well. ASSESSMENT: No change in diagnoses. PLAN: Current medicines have been reviewed and will be maintained. She does appear significantly calmer. She is still very impaired cognitively and her family is seeking shelter placement. TRANSINT:[id number] Voice Confirmation ID: [id number] DOCUMENT ID: [id number] JAYNE BECKFORD MD at 2015 CC: [id number] DICTATION DATE: 01/21/181108 SUPERVISOR LOCOMOTIVE: 01/21/18 1300 ADM IN [place] [id number] [place] [address]
--- NOTE | ~2018-01-04 | PN ---
PATIENT:LIBERTY LIND MEDICAL RECORD: [id number] LOCATION:MARIA GUADALUPE Ramirez112 ADMISSION DATE: 01/04/18 PROGRESS NOTE DATE OF SERVICE: 01/06/2018 SUBJECTIVE: The patient's case was discussed with staff. She has no new complaint. OBJECTIVE: The patient was quite agitated last night. She required p.r.n. medication. She also was looking more depressed than she was when she was previously here. She is making some delusional statements and is paranoid about a man who was trying to kill her. ASSESSMENT: No change in diagnoses. PLAN: The patient will be given Klonopin to assist with her anxiety and sleep consolidation. She will also be changed to a different antidepressant medication. Her long-term prognosis is guarded. TRANSINT:[id number] Voice Confirmation ID: [id number] DOCUMENT ID: [id number] JAYNE BECKFORD MD at 1212 CC: [id number] DICTATION DATE: 01/06/18 1045 CHAIN MAKER HAND: 01/06/18 1103 ADM IN [facility] [address] [place] [address]
[~2018-01-04 14:23] MED LIST: ASCORBIC ACID500 MG PO; Aricept PO; BAYER CHEWABLE81 MG PO; BLACK COHOSH200 MG PO; CALCIUM 600 +1 EAC3 PO; CARAFATE1 G PO; CYANOCOBALAMIN; FLORAJEN3 CAPS460 MG PO; K-TAB10 MEQ PO; LIDODERM 5 %1 PATCH TRANSDERM; LIPITOR40 MG PO; LISINOPRIL10 MG PO; NAMENDA5 MG PO; OMEPRAZOLE40 MG PO; PHENYLEPHRINE PO; POTASSIUM99 M1 PO; PRINIVIL20 MG PO; PROBIOTIC BLEN1 EACH; PROTONIX40 MG PO; PYRILAMINE PO; RIVASTIGMINE6 MG PO; SEROQUEL25 MG PO; TRAMADOL HCL E100 M1 PO; VITAMIN B-121000 MCG PO; VITAMIN E100 UNIT PO; ZOLOFT50 MG PO; [UNRECOGNIZED DRUG - OTHER]
[2018-01-04] MEDS ORDERED: HALDOL5 MG PO (16:24)
[2018-01-04] MEDS ORDERED: RISPERDAL0.25 MG PO (16:25)
[2018-01-04] MEDS ORDERED: GEODON20 MG PO (16:25)
[2018-01-04] MEDS ORDERED: KLONOPIN1 MG PO (16:26)
[2018-01-04] MEDS ORDERED: SEROQUEL25 MG PO (16:27)
[2018-01-04] MEDS ORDERED: CARAFATE1 G PO (16:27)
[2018-01-04 17:21] LABS: BASOPHILS 0.4 % (0-2); EOSINOPHILS 3.3 % (0-7); HEMATOCRIT 36.8 % (36.0-48.0); HEMOGLOBIN 11.8 g/dL (12-16); IMMATURE GRANULOCYTES 0.3 % (0-5); LYMPHOCYTES 25.2 % (15-50); MCH 28.2 pg (26.0-34.0); MCHC 32.1 g/dL (31.0-37.0); MCV 87.8 fL (80.0-100.0); MEAN PLATELET VOLUME 11.1 fL (7.4-10.4); MONOCYTES 7.4 % (2-11); NEUTROPHILS 63.4 % (40-80); RBC 4.19 10x6/uL (4.00-5.40); WBC 7.8 10x3/uL (4.8-10.8)
[2018-01-04 17:25] LABS: PLATELET COUNT 278 10x3/uL (130-400)
[2018-01-04 17:49] LABS: ALBUMIN 3.7 g/dL (3.4-5.0); ALKALINE PHOSPHATASE 66 U/L (46-116); ALT (SGPT) 31 U/L (10-68); CALC OSMOLALITY 284 mosm/kg (275-300); CALCIUM 8.9 mg/dL (8.5-10.1); CARBON DIOXIDE 25.2 mmol/L (21.0-32.0); CHLORIDE - SERUM 106 mmol/L (98-107); CHOL - HDL RATIO 3.2 ratio (2.3-4.1); CHOLESTEROL, TOTAL 163 mg/dL (0-200); CREATININE - SERUM 0.8 mg/dL (0.6-1.3); GLUCOSE 93 mg/dL (74-106); HDL CHOLESTEROL 51 mg/dL (32-96); LDL CHOLESTEROL 81 mg/dL (0-100); LDL-HDL RATIO 1.6 ratio (1.5-3.5); POTASSIUM - SERUM 3.9 mmol/L (3.5-5.1); PROTEIN - SERUM 7.4 g/dL (6.4-8.2); SODIUM 142 mmol/L (136-145); THYROID STIMULATING HORMONE 1.41 uIU/mL (0.36-3.74); TRIGLYCERIDE 158 mg/dL (30-200); UREA NITROGEN 18 mg/dL (7-18); eGFR NON AFRICAN AMERICAN 75 mL/min (90-120)
[2018-01-04 18:10] VITALS: BP 129/62; BMI 27.3
[2018-01-04 20:15] VITALS: BP 146/58
[2018-01-05 09:47] VITALS: BP 127/74; BMI 27.2
[2018-01-05 20:34] VITALS: BP 138/76
[2018-01-06 11:34] VITALS: BP 154/82
[2018-01-06 20:32] VITALS: BP 150/100
[2018-01-06 21:54] LABS: APPEARANCE HAZY (CLEAR); BILIRUBIN NEGATIVE (NEGATIVE); COLOR YELLOW (YELLOW); GLUCOSE NEGATIVE (NEGATIVE); KETONE NEGATIVE (NEGATIVE); NITRITE NEGATIVE (NEGATIVE); PROTEIN NEGATIVE (NEGATIVE); UROBILINOGEN NORMAL (NORMAL)
[2018-01-06 21:55] LABS: AMORPHOUS SEDIMENT >1+ /lpf (NONE SEEN); BACTERIA MODERATE /hpf (NONE SEEN); EPITHELIAL CELLS 0-5 /hpf (0-5); RED CELLS - URINE 0-5 /hpf (0-5); WHITE CELLS - URINE 0-5 /hpf (0-5)
[2018-01-07 08:59] VITALS: BP 122/65
[2018-01-07 20:02] VITALS: BP 136/58
[2018-01-08 10:47] VITALS: BP 149/70
[2018-01-08 19:32] VITALS: BP 113/49
[2018-01-09 08:05] VITALS: BP 148/76
[2018-01-09 20:00] VITALS: BP 126/55
[2018-01-10 10:07] VITALS: BP 151/82
[2018-01-10 20:39] VITALS: BP 157/73
[2018-01-11 09:26] VITALS: BP 124/57
[2018-01-11 11:11] VITALS: BMI 27.2
[2018-01-11 19:31] VITALS: BP 137/70
[2018-01-12 09:18] VITALS: BP 128/65
[2018-01-12 19:49] VITALS: BP 113/49
[2018-01-13 10:12] VITALS: BP 121/70
[2018-01-13 21:12] VITALS: BP 120/47
[2018-01-14 09:11] VITALS: BP 117/65
[2018-01-14 20:10] VITALS: BP 101/37
[2018-01-15 11:04] VITALS: BP 150/65
[2018-01-15 20:24] VITALS: BP 152/96
[2018-01-16 08:00] VITALS: BP 147/58
[2018-01-16 21:01] VITALS: BP 141/70
[2018-01-17 07:00] VITALS: BP 109/65
[2018-01-17 19:22] VITALS: BP 111/89
[2018-01-18 07:00] VITALS: BP 124/54
[2018-01-18 20:19] VITALS: BP 112/41
[2018-01-19 08:00] VITALS: BP 147/62
[2018-01-19 19:23] VITALS: BP 143/72
[2018-01-20 09:24] VITALS: BP 135/73
[2018-01-20 10:27] VITALS: Ht 165.1 cm; Wt 73.4 kg
[2018-01-20 19:38] VITALS: BP 160/71
[2018-01-21 08:30] VITALS: BP 134/69
[2018-01-21 20:23] VITALS: BP 147/78
[2018-01-22 10:16] VITALS: BP 121/67
[2018-01-22 20:33] VITALS: BP 175/68
[2018-01-23 07:00] VITALS: BP 125/71
[2018-01-23 20:00] VITALS: BP 142/76
[2018-01-24 00:50] VITALS: BP 142/76
[2018-01-24 07:00] VITALS: BP 131/69
[2018-01-24 19:38] VITALS: BP 130/62
[2018-01-25 08:00] VITALS: BP 116/65
[2018-01-25 19:51] VITALS: BP 144/75
[2018-01-26 09:04] VITALS: BP 131/66
[2018-01-26] MEDS ORDERED: NAMENDA5 MG PO (12:58)
[2018-01-26] MEDS ORDERED: ZESTRIL40 MG PO (12:58)
[2018-01-26] MEDS ORDERED: EFFEXOR37.5 MG PO (12:59)
[2018-01-26] MEDS ORDERED: KLONOPIN0.5 MG PO (12:59)
[2018-01-26] MEDS ORDERED: MEGACE40 MG PO (13:00)
[2018-01-26 20:04] VITALS: BP 145/59
[2018-01-27 07:36] VITALS: BP 148/86
== END 2018-01-27 13:30 | disposition home or self-care (01) | DRG 57 ==
LOC: D.PSYCH 14:23
PROVIDERS: Psychiatry & Neurology Psychiatry
DX: G30.1 Alzheimer's disease with late onset (principal); F02.81 Dementia in other diseases classified elsewhere, unspecified severity, with behavioral disturbance; F41.8 Other specified anxiety disorders; F32.9 Major depressive disorder, single episode, unspecified; I10 Essential (primary) hypertension; E78.5 Hyperlipidemia, unspecified; E53.8 Deficiency of other specified B group vitamins; E03.9 Hypothyroidism, unspecified; M19.90 Unspecified osteoarthritis, unspecified site; H10.9 Unspecified conjunctivitis; B85.0 Pediculosis due to Pediculus humanus capitis; K21.9 Gastro-esophageal reflux disease without esophagitis

== ENCOUNTER 2018-02-06 16:54 | Emergency (ER) | payer MEDICARE, BC ==
[~2018-02-06] VITALS: Ht 165.1 cm; Wt 72.7 kg
[~2018-02-06 16:54] MED LIST changes: +EFFEXOR37.5 MG PO; +GEODON20 MG PO; +HALDOL5 MG PO; +KLONOPIN0.5 MG PO; +KLONOPIN1 MG PO; +MEGACE40 MG PO; +RISPERDAL0.25 MG PO; +ZESTRIL40 MG PO
[2018-02-06 16:57] VITALS: Ht 165.1 cm; Wt 72.7 kg
[2018-02-06] MEDS ORDERED: VOLTAREN75 MG PO (19:01)
[2018-02-07 00:46] VITALS: BP 144/73
== END 2018-02-06 20:05 | disposition home or self-care (01) ==
LOC: D.ER 16:54
DX: M54.5 Low back pain (principal); W08.XXXA Fall from other furniture, initial encounter; Y93.89 Activity, other specified; Y92.019 Unspecified place in single-family (private) house as the place of occurrence of the external cause; F03.90 Unspecified dementia, unspecified severity, without behavioral disturbance, psychotic disturbance, mood disturbance, and anxiety

== ENCOUNTER 2018-10-25 19:15 | Inpatient (IN) | payer MEDICARE, BC ==
[~2018-10-25] VITALS: Ht 165.1 cm; Wt 62.5 kg
[~2018-10-25 19:15] MED LIST changes: +VOLTAREN75 MG PO
[2018-10-25 21:25] VITALS: BP 148/57
[2018-10-25] MEDS ORDERED: ABILIFY2 MG PO (21:43)
[2018-10-25] MEDS ORDERED: DECADRON4 MG PO (21:48)
[2018-10-25] MEDS ORDERED: DEPAKOTE250 MG PO (21:51)
[2018-10-25] MEDS ORDERED: TRAZODONE HCL PO (21:55)
[2018-10-25] MEDS ORDERED: LIDOCAINE TRANSDERM (22:01)
[2018-10-25] MEDS ORDERED: HYDROCODON-ACE1 EA10 PO (22:02)
[2018-10-25] MEDS ORDERED: BIOFREEZE118 ML TOPICAL (22:04)
[2018-10-25] MEDS ORDERED: KEPPRA1000 MG PO (22:05)
[2018-10-25] MEDS ORDERED: ZESTRIL10 MG PO (22:06)
[2018-10-25] MEDS ORDERED: ZOLOFT50 MG PO (22:07)
[2018-10-25] MEDS ORDERED: FERROUS SULFAT325 MG PO (22:09)
[2018-10-25] MEDS ORDERED: [UNRECOGNIZED DRUG - OTHER] EACH EYE (22:13)
[2018-10-25] MEDS ORDERED: CRANBERRY PO (22:15)
[2018-10-25] MEDS ORDERED: RIVASTIGMINE3 MG PO (22:17)
[2018-10-25] MEDS ORDERED: ELIQUIS5 MG PO (22:18)
[2018-10-25] MEDS ORDERED: LOW DOSE ASPIRI81 M1 PO (22:21)
[2018-10-25 22:42] VITALS: BP 148/57
[2018-10-25 23:18] LABS: APPEARANCE CLEAR (CLEAR); BILIRUBIN NEGATIVE (NEGATIVE); COLOR STRAW (YELLOW); GLUCOSE NEGATIVE (NEGATIVE); KETONE SMALL mg/dL (NEGATIVE); NITRITE NEGATIVE (NEGATIVE); PROTEIN NEGATIVE (NEGATIVE); SPECIFIC GRAVITY 1.005 (1.005-1.020); UROBILINOGEN NORMAL (NORMAL)
[2018-10-26 07:41] LABS: BASOPHILS 0.3 % (0-2); EOSINOPHILS 0.4 % (0-7); HEMATOCRIT 36.2 % (36.0-48.0); HEMOGLOBIN 11.8 g/dL (12-16); IMMATURE GRANULOCYTES 0.5 % (0-5); LYMPHOCYTES 36.2 % (15-50); MCH 28.4 pg (26.0-34.0); MCHC 32.6 g/dL (31.0-37.0); MEAN PLATELET VOLUME 10.5 fL (7.4-10.4); MONOCYTES 12.8 % (2-11); NEUTROPHILS 49.8 % (40-80); PLATELET COUNT 263 10x3/uL (130-400); RBC 4.16 10x6/uL (4.00-5.40); RDW 13.9 % (11.5-14.5); WBC 7.7 10x3/uL (4.8-10.8)
[2018-10-26 08:25] LABS: ALBUMIN 3.5 g/dL (3.4-5.0); ALKALINE PHOSPHATASE 67 U/L (46-116); ALT (SGPT) 15 U/L (10-68); BILIRUBIN - TOTAL 0.45 mg/dL (0.2-1.3); CALC OSMOLALITY 285 mosm/kg (275-300); CARBON DIOXIDE 28.7 mmol/L (21.0-32.0); CHLORIDE - SERUM 106 mmol/L (98-107); CHOL - HDL RATIO 3.6 ratio (2.3-4.1); CHOLESTEROL, TOTAL 216 mg/dL (0-200); CREATININE - SERUM 0.7 mg/dL (0.6-1.3); GLUCOSE 80 mg/dL (74-106); HDL CHOLESTEROL 60 mg/dL (32-96); LDL CHOLESTEROL 138 mg/dL (0-100); LDL-HDL RATIO 2.3 ratio (1.5-3.5); POTASSIUM - SERUM 3.4 mmol/L (3.5-5.1); PROTEIN - SERUM 7.3 g/dL (6.4-8.2); SODIUM 144 mmol/L (136-145); THYROID STIMULATING HORMONE 1.42 uIU/mL (0.36-3.74); TRIGLYCERIDE 91 mg/dL (30-200); UREA NITROGEN 12 mg/dL (7-18); eGFR NON AFRICAN AMERICAN 87 mL/min (90-120)
[2018-10-26 10:13] VITALS: BP 137/57
[2018-10-26 11:31] VITALS: BMI 22.3
[2018-10-26 13:22] VITALS: Ht 165.1 cm; Wt 62.5 kg
[2018-10-26 22:52] VITALS: BP 150/60
[2018-10-27 07:14] LABS: RAPID PLASMA REAGIN Non Reactive (Non Reactive)
[2018-10-27 09:00] VITALS: BP 115/63
--- NOTE | 2018-10-27 13:17 | PSY ---
PATIENT NAME:LIBERTY LIND MEDICAL RECORD: [id number] : 49 LOCATION:AgIMTIAZ Ramirez1128 ADMISSION DATE: 10/25/18 ACCOUNT: [id number] PSYCHIATRIC EVALUATION DATE OF EVALUATION: 10/26/18 PSYCHIATRIC EVALUATION IDENTIFYING DATA: The patient is 73 years old and she is referred to us by the intermediate in [place]. CHIEF COMPLAINT: None. HISTORY OF PRESENT ILLNESS: The intermediate reports that the patient has been difficult to manage. They say that she has been yelling at staff when they try to redirect her and that she has been wandering into the rooms of other patients, taking things, and doing things that are bizarre such as throwing items in the toilet and trying to flush it and then cursing when they try to redirect her. There is no evidence that she was stealing for the purpose of personal gain. It is just simply a matter of her being confused and not understanding. The patient is clearly confused and she was here in the past. I believe it was more than 6 months ago and she has dramatically declined since then. PAST MEDICAL HISTORY: Significant for hypothyroidism; hyperlipidemia; hypertension; congestive heart failure; and for reasons I am not sure of, she does have a vena cava filter. She is not able to discuss any of this with me. PAST PSYCHIATRIC HISTORY: Significant for established diagnosis of dementia. The patient has been treated on an inpatient basis in the past. I have seen mention of her possibly having schizophrenia, which is incorrect. She does not have schizophrenia. She is demented. FAMILY HISTORY: Unknown. The patient is unable to provide information. ALLERGIES: No known drug allergies. CURRENT MEDICATIONS: Include Protonix, Desyrel, Exelon, Keppra, Zoloft, Namenda, Depakote, aspirin, Abilify, Zestril, and Eliquis. SOCIAL HISTORY: The patient is . She has adult children, who are involved with her care. She has no history of drug or alcohol abuse. MENTAL STATUS EXAMINATION: The patient is awake, alert, and oriented to person only. Her mood is anxious. Her affect is constricted. Thought processes are disorganized with severe impairment of her memory, concentration, and abstraction abilities. She denies that she would seek to harm herself or others and there are no observed psychotic symptoms. ASSETS: Supportive family members. LIABILITIES: Poor insight. DIAGNOSTIC IMPRESSION: AXIS I: Major neurocognitive disorder of the Alzheimer's type with behavioral disturbances. AXIS II: None. AXIS III: Hypertension and hyperlipidemia. AXIS IV: Moderate stressors. AXIS V: Global assessment of functioning is 20. PLAN: At this time, the patient is admitted to the hospital for comprehensive medical, psychological, and social evaluation. She will be treated with both mood stabilizing and memory enhancing medications. Her long-term prognosis is guarded. TRANSINT:[id number] Voice Confirmation ID: [id number] DOCUMENT ID: [id number] JAYNE BECKFORD MD at 1317 CC: [id number] DICTATION DATE: 10/26/18 1528 GREEN END WORKER: 10/26/18 1549 [facility] IN [place] [place] [address]
[2018-10-27 19:31] VITALS: BP 131/60
[2018-10-28 09:56] VITALS: BP 152/75
--- NOTE | 2018-10-28 15:42 | PN ---
PATIENT:LIBERTY LIND MEDICAL RECORD: [id number] LOCATION:AgAyanRONNIE Ramirez112 ADMISSION DATE: 10/25/18 PROGRESS NOTE DATE OF SERVICE: 10/27/2018 SUBJECTIVE: The patient's case was discussed with staff. She has no new complaint. OBJECTIVE: The patient is very confused. She was agitated last evening and did require p.r.n. medication because of the agitation. ASSESSMENT: No change in diagnoses. PLAN: The patient will be taken off of Depakote secondary to lack of clinical indication. She will be monitored for side effects from this. Long-term prognosis is guarded. TRANSINT:[id number] Voice Confirmation ID: [id number] DOCUMENT ID: [id number] JAYNE BECKFORD MD at 1542 CC: [id number] DICTATION DATE: 10/27/18 1457 MEAT AND POULTRY INSPECTOR: 10/27/18 1756 ADM IN [address] [address] [place] [address]
[2018-10-28 20:00] VITALS: BP 118/61
[2018-10-29 10:51] VITALS: BP 112/58
--- NOTE | 2018-10-29 12:25 | PN ---
PATIENT:LIBERTY LIND MEDICAL RECORD: [id number] LOCATION:MARIA GUADALUPE Ramirez112 ADMISSION DATE: 10/25/18 PROGRESS NOTE DATE OF SERVICE: 10/28/2018 SUBJECTIVE: The patient's case was discussed with staff. She has no new complaint. OBJECTIVE: The patient denies intent to harm herself or others. She is tolerating her medicines well. She has not been aggressive. ASSESSMENT: No change in diagnoses. PLAN: Current medicines have been reviewed and will be maintained. Long-term prognosis is guarded. TRANSINT:[id number] Voice Confirmation ID: [id number] DOCUMENT ID: [id number] JAYNE BECKFORD MD at 1225 CC: [id number] DICTATION DATE: 10/28/18 1615 JAVA SUPPORT ENGINEER: 10/28/18 2219 ADM IN [facility] [address] [place] [address]
[2018-10-29 20:00] VITALS: BP 148/64
[2018-10-30 07:00] VITALS: BP 134/66
--- NOTE | 2018-10-30 12:29 | PN ---
PATIENT:LIBERTY LIND MEDICAL RECORD: [id number] LOCATION:MARIA GUADALUPE Ramirez112 ADMISSION DATE: 10/25/18 PROGRESS NOTE DATE OF SERVICE: 10/29/2018 SUBJECTIVE: The patient's case was discussed with staff. She has no new complaint. OBJECTIVE: The patient is in good behavioral control. Poor insight about her condition. ASSESSMENT: No change in diagnoses. PLAN: Current medicines have been reviewed and will be maintained. Long-term prognosis is guarded. TRANSINT:[id number] Voice Confirmation ID: [id number] DOCUMENT ID: [id number] JAYNE BECKFORD MD at 1229 CC: [id number] DICTATION DATE: 10/29/18 1234 CUSTOMER ENERGY SPECIALIST: 10/29/18 1447 ADM IN [place] [place] [address]
[2018-10-30 20:15] VITALS: BP 129/49
[2018-10-31 07:00] VITALS: BP 125/60
--- NOTE | 2018-10-31 14:28 | PN ---
PATIENT:LIBERTY LIND MEDICAL RECORD: [id number] LOCATION:MARIA GUADALUPE Ramirez112 ADMISSION DATE: 10/25/18 PROGRESS NOTE DATE OF SERVICE: 10/30/2018 SUBJECTIVE: The patient's case was discussed with staff. She has no new complaint. OBJECTIVE: The patient denies intent to harm herself or others. She is tolerating her medicines well. She has not been significantly agitated. Her condition has dramatically deteriorated since her previous hospitalization here. TRANSINT:[id number] Voice Confirmation ID: [id number] DOCUMENT ID: [id number] JAYNE BECKFORD MD at 1428 CC: [id number] DICTATION DATE: 10/30/18 1243 MANAGER VALUATION: 10/30/18 1513 ADM IN [address] [address] [place] [address]
[2018-10-31 23:46] VITALS: BP 124/60
[2018-11-01 09:43] VITALS: BP 139/59
--- NOTE | 2018-11-01 15:33 | PN ---
PATIENT:LIBERTY LIND MEDICAL RECORD: [id number] LOCATION:MARIA GUADALUPE Ramirez112 ADMISSION DATE: 10/25/18 PROGRESS NOTE DATE OF SERVICE: 10/31/2018 SUBJECTIVE: The patient's case was discussed with staff. She has no new complaint. OBJECTIVE: The patient denies intent to harm herself or others. She is tolerating her medicines reasonably well. ASSESSMENT: No change in diagnoses. PLAN: Brief supportive and educational interventions were made. Current medicines will be maintained. TRANSINT:[id number] Voice Confirmation ID: [id number] DOCUMENT ID: [id number] JAYNE BECKFORD MD at 1533 CC: [id number] DICTATION DATE: 10/31/18 1521 LEGUILLON DEBEADER: 10/31/18 1600 ADM IN [place] [id number]
[2018-11-01 20:31] VITALS: BP 137/59
[2018-11-02 08:38] VITALS: BP 138/65
--- NOTE | 2018-11-02 11:35 | PN ---
PATIENT:LIBERTY LIND MEDICAL RECORD: [id number] LOCATION:MARIA GUADALUPE Ramirez112 ADMISSION DATE: 10/25/18 PROGRESS NOTE DATE OF SERVICE: 11/01/2018 SUBJECTIVE: The patient's case was discussed with staff. She has no new complaint. OBJECTIVE: The patient denies intent to harm herself or others. She has been significantly agitated and disruptive with the staff. ASSESSMENT: No change in diagnoses. PLAN: The patient is going to be treated with a low dose of Geodon to assist with her agitation. Geodon is being used to help with her disruptive behaviors. She will be monitored for clinical changes associated with its use. TRANSINT:[id number] Voice Confirmation ID: [id number] DOCUMENT ID: [id number] JAYNE BECKFORD MD at 1135 CC: [id number] DICTATION DATE: 11/01/18 1625 RACE CAR DRIVER: 11/01/18 1638 ADM IN [address] [address] [place] [address]
[2018-11-02 20:00] VITALS: BP 143/75
--- NOTE | 2018-11-03 10:08 | PN ---
PATIENT:LIBERTY LIND MEDICAL RECORD: [id number] LOCATION:MARIA GUADALUPE Ramirez112 ADMISSION DATE: 10/25/18 PROGRESS NOTE DATE OF SERVICE: 11/02/2018 SUBJECTIVE: The patient's case was discussed with staff. She has no new complaint. OBJECTIVE: The patient is in good behavioral control with limited insight about her condition. She tolerates her medicines well. ASSESSMENT: No change in diagnoses. PLAN: Current medicines have been reviewed. Unfortunately, Lizs condition is advanced. I am going to maintain current medicines as they are. TRANSINT:[id number] Voice Confirmation ID: [id number] DOCUMENT ID: [id number] JAYNE BECKFORD MD at 1008 CC: [id number] DICTATION DATE: 11/02/18 1249 FOAM DISPENSER: 11/02/18 1254 ADM IN [address] [address] [place] [address]
[2018-11-03 10:46] VITALS: BP 139/58
[2018-11-03 20:00] VITALS: BP 90/68
[2018-11-04 09:17] VITALS: BP 114/72
[2018-11-04 20:41] VITALS: BP 118/81
[2018-11-05 08:15] VITALS: BP 150/67
[2018-11-05 09:20] VITALS: BP 150/67
--- NOTE | 2018-11-05 12:39 | PN ---
PATIENT:LIBERTY LIND MEDICAL RECORD: [id number] LOCATION:MARIA GUADALUPE Ramirez112 ADMISSION DATE: 10/25/18 PROGRESS NOTE DATE OF SERVICE: 11/04/2018 SUBJECTIVE: The patient's case was discussed with staff. She has no new complaint. OBJECTIVE: The patient is in good behavioral control, but quite confused. ASSESSMENT: No change in diagnoses. PLAN: Current medicines have been reviewed and will be maintained. Long-term prognosis is guarded. TRANSINT:[id number] Voice Confirmation ID: [id number] DOCUMENT ID: [id number] JAYNE BECKFORD MD at 1239 CC: [id number] DICTATION DATE: 11/04/18 180 SYRUP MAKER: 11/04/18 1836 ADM IN [place] [place] [address]
--- NOTE | 2018-11-05 12:39 | PN ---
PATIENT:LIBERTY LIND MEDICAL RECORD: [id number] LOCATION:AgSOILAToño Ramirez112 ADMISSION DATE: 10/25/18 PROGRESS NOTE DATE OF SERVICE: 11/03/2018 SUBJECTIVE: The patient's case was discussed with staff. She has no new complaint. OBJECTIVE: The patient is in good behavioral control. She has poor insight about her condition. She does tolerate her medicines well. ASSESSMENT: No change in diagnoses. PLAN: The patient has been impulsive and agitated at times. I think it is related to an underlying anxiety as she is unable to understand and process information in her environment. I am going to give her a low dose of Klonopin. Hopefully, this will assist with her agitation. TRANSINT:[id number] Voice Confirmation ID: [id number] DOCUMENT ID: [id number] JAYNE BECKFORD MD at 1239 CC: [id number] DICTATION DATE: 11/03/18 1027 PUBLIC POLICY MEDIATOR: 11/03/18 1057 ADM IN [address] [place] [address]
[2018-11-05 20:36] VITALS: BP 119/55
[2018-11-06 08:00] VITALS: BP 149/83
--- NOTE | 2018-11-06 11:14 | PN ---
PATIENT:LIBERTY LIND MEDICAL RECORD: [id number] LOCATION:MARIA GUADALUPE Ramirez112 ADMISSION DATE: 10/25/18 PROGRESS NOTE DATE OF SERVICE: 11/05/2018 SUBJECTIVE: The patient's case was discussed with staff. She has no new complaint. OBJECTIVE: The patient is in good behavioral control. She has limited insight about her condition. She tolerates her medicines well. ASSESSMENT: No change in diagnoses. PLAN: Current medicines and therapies have been reviewed and will be maintained. TRANSINT:[id number] Voice Confirmation ID: [id number] DOCUMENT ID: [id number] JAYNE BECKFORD MD at 1114 CC: [id number] DICTATION DATE: 11/05/18 1248 CALENDER ROLL OPERATOR: 11/05/18 1253 ADM IN [place] [address] [place] [address]
[2018-11-06 20:50] VITALS: BP 114/51
[2018-11-07 08:26] VITALS: BP 141/74
--- NOTE | 2018-11-07 13:42 | PN ---
PATIENT:LIBERTY LIND MEDICAL RECORD: [id number] LOCATION:MARIA GUADALUPE RamirezDiana ADMISSION DATE: 10/25/18 PROGRESS NOTE DATE OF SERVICE: 11/06/2018 SUBJECTIVE: The patient's case was discussed with staff. She has no new complaint. OBJECTIVE: The patient is in good behavioral control with poor insight about her condition. She is tolerating her medicines well. ASSESSMENT: No change in diagnoses. PLAN: Brief supportive and educational interventions were made. Long-term prognosis is guarded. TRANSINT:[id number] Voice Confirmation ID: [id number] DOCUMENT ID: [id number] JAYNE BECKFORD MD at 1342 CC: [id number] DICTATION DATE: 11/06/18 1119 CAGE OPERATOR: 11/06/18 1200 ADM IN [address] [address]
[2018-11-07 21:25] VITALS: BP 126/63
[2018-11-08 08:00] VITALS: BP 148/60
--- NOTE | 2018-11-08 12:20 | PN ---
PATIENT:LIBERTY LIND MEDICAL RECORD: [id number] LOCATION:MARIA GUADALUPE Ramirez112 ADMISSION DATE: 10/25/18 PROGRESS NOTE DATE OF SERVICE: 11/07/2018 SUBJECTIVE: The patient's case was discussed with staff. She has no new complaint. OBJECTIVE: The patient denies intent to harm herself or others. She is tolerating her medicines well. ASSESSMENT: No change in diagnoses. PLAN: Brief supportive and educational interventions were made. Long-term prognosis is guarded. TRANSINT:[id number] Voice Confirmation ID: [id number] DOCUMENT ID: [id number] JAYNE BECKFORD MD at 1220 CC: [id number] DICTATION DATE: 11/07/18 1518 RN FORENSIC: 11/07/18 1817 ADM IN [place] [place] [address]
[2018-11-08 21:02] VITALS: BP 151/69
[2018-11-09 08:30] VITALS: BP 131/65
--- NOTE | 2018-11-09 09:56 | PN ---
PATIENT:LIBERTY LIND MEDICAL RECORD: [id number] LOCATION:[facility] ADMISSION DATE: 10/25/18 PROGRESS NOTE DATE OF SERVICE: 11/08/2018 SUBJECTIVE: The patient's case was discussed with staff. She has no new complaint. OBJECTIVE: The patient is in good behavioral control with limited insight about her condition. She is tolerating her medicines well. She is severely impaired cognitively. ASSESSMENT: No change in diagnoses. PLAN: Supportive and educational interventions were made. Long-term prognosis is guarded. TRANSINT:[id number] Voice Confirmation ID: [id number] DOCUMENT ID: [id number] JAYNE BECKFORD MD at 0956 CC: [id number] DICTATION DATE: 11/08/18 1227 CYBER SYSTEMS OPERATIONS SPECIALIST: 11/08/18 1242 ADM IN [place] [id number] [place] [address]
[2018-11-09 20:46] VITALS: BP 131/62
[2018-11-10 08:30] VITALS: BP 151/74
--- NOTE | 2018-11-10 15:02 | PN ---
PATIENT:LIBERTY LIND MEDICAL RECORD: [id number] LOCATION:[facility] ADMISSION DATE: 10/25/18 PROGRESS NOTE DATE OF SERVICE: 11/09/2018 SUBJECTIVE: The patient's case was discussed with staff. She has no new complaint. OBJECTIVE: The patient is in good behavioral control with limited insight about her condition. She tolerates her medicines well. ASSESSMENT: No change in diagnoses. PLAN: The patient will be maintained on current medications. Her long-term prognosis is guarded. TRANSINT:[id number] Voice Confirmation ID: [id number] DOCUMENT ID: [id number] JAYNE BECKFORD MD at 1502 CC: [id number] DICTATION DATE: 11/09/18 1548 LOCAL FLATBED DRIVER: 11/09/18 2203 ADM IN [place] [id number] [place] [address]
[2018-11-10 20:48] VITALS: BP 109/52
[2018-11-11 08:51] VITALS: BP 158/65
--- NOTE | 2018-11-11 16:06 | PN ---
PATIENT:LIBERTY LIND MEDICAL RECORD: [id number] LOCATION:[facility]112 ADMISSION DATE: 10/25/18 PROGRESS NOTE DATE OF SERVICE: 11/10/2018 SUBJECTIVE: The patient's case was discussed with staff. She has no new complaint. OBJECTIVE: The patient denies that she would seek to harm herself or others. She has been somewhat agitated, but reasonably redirectable. ASSESSMENT: No change in diagnoses. PLAN: Current medicines have been reviewed and will be maintained. Long-term prognosis is guarded. TRANSINT:[id number] Voice Confirmation ID: [id number] DOCUMENT ID: [id number] JAYNE BECKFORD MD at 1606 CC: [id number] DICTATION DATE: 11/10/18 1600 VOLUNTEER FIREFIGHTER: 11/10/18 1705 ADM IN [place] [id number] [place] [address]
[2018-11-11 20:00] VITALS: BP 125/59
[2018-11-12 10:41] VITALS: BP 148/73
--- NOTE | 2018-11-12 12:25 | PN ---
PATIENT:LIBERTY LIND MEDICAL RECORD: [id number] LOCATION:[facility]112 ADMISSION DATE: 10/25/18 PROGRESS NOTE DATE OF SERVICE: 11/11/2018 SUBJECTIVE: The patient's case was discussed with staff. She has no new complaint. OBJECTIVE: The patient is calmer today. She has not been as agitated. She has limited insight about her situation. ASSESSMENT: No change in diagnoses. PLAN: Current medicines have been reviewed and will be maintained. 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 She is receiving steroids to address this and I am sure the steroids are affecting her mood and this will be an ongoing problem. With her advanced dementia and cancer, it seems only reasonable and appropriate to refer her to comfort care or palliative care. TRANSINT:[id number] Voice Confirmation ID: [id number] DOCUMENT ID: [id number] JAYNE BECKFORD MD at 1225 CC: [id number] DICTATION DATE: 11/11/181708 ESTATE MANAGER: 11/11/18 2208 ADM IN [place] [address] [id number] [place] [address]
[2018-11-12 20:16] VITALS: BP 157/64
[2018-11-13 07:00] VITALS: BP 126/70
[2018-11-13 20:00] VITALS: BP 130/67
[2018-11-14 08:00] VITALS: BP 142/76
--- NOTE | 2018-11-14 10:16 | PN ---
PATIENT:LIBERTY LIND MEDICAL RECORD: [id number] LOCATION:[facility]112 ADMISSION DATE: 10/25/18 PROGRESS NOTE DATE OF SERVICE: 11/12/2018 SUBJECTIVE: The patient's case was discussed with staff. She has no new complaint. OBJECTIVE: The patient is in good behavioral control. She has limited insight about her condition. ASSESSMENT: No change in diagnoses. PLAN: Brief supportive and educational interventions were made. Long-term prognosis is guarded. TRANSINT:[id number] Voice Confirmation ID: [id number] DOCUMENT ID: [id number] JAYNE BECKFORD MD at 1016 CC: [id number] DICTATION DATE: 11/12/18 1233 BELT BUILDER HELPER: 11/12/18 1244 ADM IN [place] [id number] [place] [address]
--- NOTE | 2018-11-14 10:16 | PN ---
PATIENT:LIBERTY LIND MEDICAL RECORD: [id number] LOCATION:[facility]112 ADMISSION DATE: 10/25/18 PROGRESS NOTE DATE OF SERVICE: 11/13/2018 SUBJECTIVE: The patient's case was discussed with staff. She has no new complaint. OBJECTIVE: The patient is in good behavioral control. She has limited insight about her situation. She tolerates her medicines well. ASSESSMENT: No change in diagnoses. PLAN: I anticipate the patient to be transitioned out of the hospital soon if this level of improvement continues. TRANSINT:[id number] Voice Confirmation ID: [id number] DOCUMENT ID: [id number] JAYNE BECKFORD MD at 1016 CC: [id number] DICTATION DATE: 11/13/18916 SOURCING SPECIALIST: 11/13/18 1008 ADM IN [place] [address] [place] [address]
[2018-11-15 00:24] VITALS: BP 150/70
[2018-11-15 08:19] VITALS: BP 146/76
--- NOTE | 2018-11-15 15:20 | PN ---
PATIENT:LIBERTY LIND MEDICAL RECORD: [id number] LOCATION:[facility]112 ADMISSION DATE: 10/25/18 PROGRESS NOTE DATE OF SERVICE: 11/14/2018 SUBJECTIVE: The patient's case was discussed with staff. She has no new complaint. OBJECTIVE: The patient is in good behavioral control with limited insight about her condition. She tolerates her medicines well. ASSESSMENT: No change in diagnoses. PLAN: Brief supportive and educational interventions were made. Long-term prognosis guarded. TRANSINT:[id number] Voice Confirmation ID: [id number] DOCUMENT ID: [id number] JAYNE BECKFORD MD at 1520 CC: [id number] DICTATION DATE: 11/14/18 1225 AIRSET CASTER: 11/14/18 1233 ADM IN [place] [id number] [place] [id number]
[2018-11-15] MEDS ORDERED: ACETAMINOPHEN325 MG PO (15:36)
[2018-11-15] MEDS ORDERED: GEODON20 MG PO (15:37)
[2018-11-15] MEDS ORDERED: Senokot TAB PO (15:37)
[2018-11-15] MEDS ORDERED: MOBIC7.5 MG PO (15:37)
[2018-11-15 20:21] VITALS: BP 150/70
[2018-11-16 08:34] VITALS: BP 143/73
--- NOTE | 2018-11-16 15:25 | PN ---
PATIENT:LIBERTY LIND MEDICAL RECORD: [id number] LOCATION:[facility]112 ADMISSION DATE: 10/25/18 PROGRESS NOTE DATE OF SERVICE: 11/15/2018 SUBJECTIVE: The patient's case was discussed with staff. She has no new complaint. OBJECTIVE: The patient is in good behavioral control. She has poor insight about her condition. ASSESSMENT: No change in diagnoses. PLAN: Supportive and educational interventions were made. Long-term prognosis is guarded. I anticipate she can be transitioned out of the hospital soon if this level of improvement continues. TRANSINT:[id number] Voice Confirmation ID: [id number] DOCUMENT ID: [id number] JAYNE BECKFORD MD at 1525 CC: [id number] DICTATION DATE: 11/15/18 1535 DIRECTOR TREASURER: 11/15/18 1637 ADM IN [facility] [address] [place] [address]
--- NOTE | 2018-11-17 15:07 | PN ---
PATIENT:LIBERTY LIND MEDICAL RECORD: [id number] LOCATION:[facility]112 ADMISSION DATE: 10/25/18 PROGRESS NOTE DATE OF SERVICE: 11/16/2018 SUBJECTIVE: The patient's case was discussed with staff. She has no new complaint. OBJECTIVE: The patient is in good behavioral control, but very confused. ASSESSMENT: No change in diagnoses. PLAN: The patient will be transitioned out of the hospital today. Her long-term prognosis is guarded. Supportive and educational interventions were made. TRANSINT:[id number] Voice Confirmation ID: [id number] DOCUMENT ID: [id number] JAYNE BECKFORD MD at 1507 CC: [id number] DICTATION DATE: 11/16/18 1632 RUSTIC TERRAZZO SETTER: 11/16/18 2309 DIS IN 11/16/18 [facility] [address] [place] [address]
--- NOTE | 2018-11-22 09:25 | DS ---
PATIENT:LIBERTY LIND :49 MEDICAL RECORD: [id number] DISCHARGE SUMMARY ADMISSION DATE: 10/25/18 DISCHARGE DATE: 11/16/18 IDENTIFYING DATA: The patient is 73 years old and she is admitted to the hospital on a voluntary basis. CHIEF COMPLAINT: Aggression. HISTORY OF PRESENT ILLNESS: The patient lives in a local skilled nursing where she has been confused, agitated, and wandering. She has been aggressive with staff and not redirectable. They are referring her to us for evaluation and treatment of these symptoms. HOSPITAL COURSE: The patient was admitted to the hospital and fully evaluated from both a medical, psychological, and social standpoint. The patient was treated with a variety of combination of memory enhancing and mood stabilizing medications, which after some adjusting finally arrived at the best reasonable balance of effectiveness versus side effect. She was subsequently discharged back to the skilled nursing. DISCHARGE DIAGNOSES: AXIS I: Major neurocognitive disorder of the Alzheimer's type with behavioral disturbances. AXIS II: None. AXIS III: Hypertension, hyperlipidemia, cancer of uncertain etiology with brain metastases. AXIS IV: Moderate stressors. AXIS V: Global assessment of functioning is 25. PLAN: At this time, the patient is discharged back to the skilled nursing. She is not representing an acute risk to herself or others. Her dementia is end-stage with very little that can be done to improve her condition. Unfortunately, she apparently also has a malignancy that is wildly metastasized. Given her overall condition medically and physically, her prognosis is unfortunately extremely poor and is best that she just be made comfortable. TRANSINT:[id number] Voice Confirmation ID: [id number] DOCUMENT ID: [id number] JAYNE BECKFORD MD at 0925 CC: [id number] DICTATION DATE: 11/21/18 1601 CONSULTING MARINE ENGINEER: 11/22/18 0447 DIS IN 11/16/18 [facility] [address] [place] [address]
== END 2018-11-16 15:00 | DRG 57 ==
LOC: D.PSYCH 19:15
PROVIDERS: ADMIT Psychiatry & Neurology Psychiatry; ATTEND Psychiatry & Neurology Psychiatry
DX: G30.9 Alzheimer's disease, unspecified (principal); F02.81 Dementia in other diseases classified elsewhere, unspecified severity, with behavioral disturbance; E78.5 Hyperlipidemia, unspecified; I11.0 Hypertensive heart disease with heart failure; I50.9 Heart failure, unspecified; M19.90 Unspecified osteoarthritis, unspecified site; E03.9 Hypothyroidism, unspecified; K21.9 Gastro-esophageal reflux disease without esophagitis; F41.8 Other specified anxiety disorders; M54.5 Low back pain; D64.9 Anemia, unspecified; W19.XXXD Unspecified fall, subsequent encounter; K59.00 Constipation, unspecified; Z86.711 Personal history of pulmonary embolism; R56.9 Unspecified convulsions; G93.9 Disorder of brain, unspecified